=== PATIENT | male | born 1950 | race Caucasian/White ===

== ENCOUNTER 2018-01-29 19:34 | Inpatient (IN) | payer MEDICARE, OTHER ==
--- NOTE | 2018-01-29 21:34 | C.PDOC ---
History Of Present Illness 67 year old male with PMHx seizures, 3 stents in 2017 presents to the ED c/o right leg and foot pain associated with a sensation of warmth. Patient states he has multiple fall since December, his latest fall was [address] landed on his left side. Patient states he feels like his legs give out. Patient denies headache, visual changes, nausea, vomit, diarrhea, rash, numbness, visual changes. Chief Complaint (Nursing): Lower Extremity Problem/Injury History Per: Patient History/Exam Limitations: no limitations Onset/Duration Of Symptoms: Days Current Symptoms Are (Timing): Still Present Recent travel outside of the [place]: No Additional History Per: Patient - Ankle/Foot Description Of Injury: Fell Past Medical History Reviewed: Historical Data, Nursing Documentation, Vital Signs Vital Signs: Last Vital Signs Temp 99.7 F H 01/29/18 19:51 Pulse 86 01/29/18 19:51 Resp 20 01/29/18 19:51 BP 169/78 H 01/29/18 19:51 Pulse Ox 95 01/29/18 19:51 - Medical History PMH: Anxiety, Asthma, Diabetes, HTN Surgical History: Coronary Stent Family History: States: Unknown Family Hx - Social History Hx Tobacco Use: No Hx Alcohol Use: No Hx Substance Use: No - Immunization History Hx Tetanus Toxoid Vaccination: No Hx Influenza Vaccination: No Hx Pneumococcal Vaccination: No Review Of Systems Constitutional: Negative for: Fever, Chills Eyes: Negative for: Vision Change Cardiovascular: Positive for: Chest Pain. Negative for: Palpitations Respiratory: Negative for: Cough, Shortness of Breath Gastrointestinal: Negative for: Nausea, Vomiting, Abdominal Pain Musculoskeletal: Positive for: Shoulder Pain, Leg Pain, Foot Pain Skin: Negative for: Rash Neurological: Positive for: Weakness. Negative for: Numbness, Headache, Dizziness Physical Exam - Physical Exam Appears: Non-toxic, No Acute Distress, Unkempt, Other (uncomfortable) Skin: Normal Color, Warm, Dry Head: Atraumatic, Normacephalic Eye(s): bilateral: Normal Inspection, PERRL, EOMI Oral Mucosa: Moist Teeth: No Normal Dentition (poor), Other (teeth erroded to gum line) Neck: Normal ROM, Supple Chest: Symmetrical, Tenderness (left sided to palpation) Cardiovascular: Rhythm Regular Respiratory: Normal Breath Sounds, No Rales, No Rhonchi, No Wheezing Gastrointestinal/Abdominal: Soft, No Tenderness, No Guarding, No Rebound Extremity: Normal ROM (left shoulder due to pain), Tenderness (left shoulder to palpation and bilateral legs), Capillary Refill (< 2 seconds), No Deformity, Swelling (bilateral legs, right > left. Right leg extending from mid tib to dorsum of foot), Other (erythema, increased warmth more right > left, extendong from mid tib to dorsum of right foot. Scab noted on right sole. ) Pulses: Left Dorsalis Pedis: Normal, Right Dorsalis Pedis: Normal Neurological/Psych: Oriented x3, Normal Speech, Normal Cognition, Normal Motor, Normal Sensation Gait: Unable To Assess ED Course And Treatment - Laboratory Results Result Diagrams: 02/04/18 11:06 02/04/18 11:06 ECG: Interpreted By Me, Viewed By Ia ECG Rhythm: Atrial Fibrillation Interpretation Of ECG: AFiv rate control 99, normal QRS and QT intervals. Normal axis and no ST elevations Rate From EC (BPM) O2 Sat by Pulse Oximetry: 95 (ON RA) Pulse Ox Interpretation: Normal - Radiology CXR: Interpreted by Me, Viewed By Ia CXR Interpretation: Yes: No Acute Disease. No: Fracture - Other Rad Left shoulder X-Ray X-Ray: Read By Radiologist Interpretation: LEFT SHOULDER. Indication: Pain. Findings: There are changes of degenerative joint disease.No fracture or dislocation is seen. No aggressive bone lesion is noted. Impression: No radiographic evidence of an acute pathol ogy. . Electronically signed on Jan 30, 2018 12:19:35 AM EST by: Harper Quinn M.D., Certified by ABR, MSK, Neuroradiology - CT Scan/US CT head Other Rad Studies (CT/US): Read By Radiologist, Radiology Report Reviewed CT/US Interpretation: EXAM: CT Head without Intravenous Contrast. CLINICAL HISTORY: Frequent falls. TECHNIQUE: Axial computed tomography images of the head/brain without intravenous contrast. 0.00 mGy-cm. COMPARISON: None provided. FINDINGS: BRAIN. Chronic periventricular and subcortical microvascular disease is seen. VENTRICLES: There is generalized parenchymal atrophy noted as demonstrated by symmetrical dilatation of ventricles and sulci. ORBITS: The orbits are unremarkable. SINUSES AND MASTOIDS: Bilateral maxillary sinusitis. BONES: No fracture. SOFT TISSUES: Unremarkable. MISCELLANEOUS: No acute intracranial pathology. IMPRESSION: 1. There is generalized parenchymal atrophy noted as demonstrated by symmetrical dilatation of ventricles and sulci. 2. Chronic periventricular and subcortical microvascular disease is seen. 3. Bilateral maxillary sinusitis. 4. No acute intracranial pathology. . Electronically signed on Jan 29, 2018 11:32:35 PM EST by: Philippe Licea M.D., FLIP Certified By ABR & CBCCT. Fellowship Trained MRI and CT Specialist Medical Decision Making Medical Decision Making: Plan: * CT head * EKG * CXR * Left shoulder X-Ray * Blood culture * Labs 00:38 - Patient of Elise Ruiz. Dr. Nitin Bee covers for the doctor and accepts the patient for admission. Disposition Counseled Patient/Family Regarding: Studies Performed, Diagnosis - Disposition Disposition: HOSPITALIZED Disposition Time: 00:38 Condition: STABLE - Clinical Impression Clinical Impression: Frequent falls, Hyperglycemia - Scribe Statement The provider has reviewed the documentation as recorded by the Scribe Delmar Ruiz All medical record entries made by the Scribe were at my direction and personally dictated by me. I have reviewed the chart and agree that the record accurately reflects my personal performance of the history, physical exam, medical decision making, and the department course for this patient. I have also personally directed, reviewed, and agree with the discharge instructions and disposition.
[2018-01-29 22:07] LABS: BASO # 0.1 K/uL (0.0-0.2); BASO % 0.8 % (0.0-2.0); EOS % 0.5 % (0.0-4.0); HEMOGLOBIN 14.4 g/dL (12.0-18.0); LYMPH # 1.4 K/uL (1.0-4.3); LYMPH % 17.2 % (20.0-40.0); MEAN CELL VOLUME 90.8 fL (80.0-94.0); MEAN CORPUSCULAR HEMOGLOBIN 30.7 pg (27.0-31.0); MEAN CORPUSCULAR HGB CONC 33.8 g/dL (33.0-37.0); MEAN PLATELET VOLUME 11.5 fL (7.2-11.7); MONO # 0.9 K/uL (0.0-0.8); MONO % 10.8 % (0.0-10.0); NEUT # 5.6 K/uL (1.8-7.0); NEUT % 70.7 % (50.0-75.0); NRBC % 0.1 % (0.0-2.0); RBC 4.69 Mil/uL (4.40-5.90); RED CELL DISTRIBUTION WIDTH 13.2 % (11.5-14.5)
[2018-01-29 22:19] LABS: ALB/GLOB RATIO 1.2 (1.0-2.1); ALBUMIN 4.2 g/dL (3.5-5.0); ALT/SGPT 119 U/L (21-72); AST/SGOT 83 U/L (17-59); BLOOD UREA NITROGEN 17 mg/dL (9-20); CALCIUM 9.6 mg/dl (8.6-10.4); GFR NON-AFRICAN AMERICAN > 60
[2018-01-29 22:30] LABS: B-TYPE NATRIURETIC PEPTIDE 70.2 pg/mL (0-900)
[2018-01-29] MEDS ORDERED: Sodium Chloride 0.9% 1,000 ML IV ONE (23:44)
[2018-01-30 06:55] LABS: BARBITURATES, UR NEGATIVE (NEGATIVE); BENZODIAZEPINES, UR NEGATIVE (NEGATIVE); OPIATES, UR NEGATIVE (NEGATIVE); PHENCYCLIDINE, UR NEGATIVE (NEGATIVE)
--- NOTE | 2018-01-30 07:48 | CT ---
Date of service: 01/29/2018 PROCEDURE: CT HEAD WITHOUT CONTRAST. HISTORY: Frequent falls COMPARISON: 10/15/2012 TECHNIQUE: Axial computed tomography images were obtained through the head/brain without intravenous contrast. Radiation dose: Total exam DLP = 1171.41 mGy-cm. This CT exam was performed using one or more of the following dose reduction techniques: Automated exposure control, adjustment of the mA and/or kV according to patient size, and/or use of iterative reconstruction technique. FINDINGS: HEMORRHAGE: No intracranial hemorrhage. BRAIN: No mass effect or edema. Scattered focal lucencies in the subcortical and periventricular white matter suggestive for chronic microvascular ischemic change. Small lacunar infarcts at the level of the left caudate head. Prominent cisterna magna. Punctate lacunar infarct in the inferior right cerebellum. VENTRICLES: Unremarkable. No hydrocephalus. CALVARIUM: Unremarkable. Chronic deformity of the left nasal bone. PARANASAL SINUSES: Mucosal retention cysts and/or polyps at the inferior bilateral maxillary sinuses. Postsurgical changes in the paranasal sinuses. Small mucosal retention cyst and or polyp in the inferior left ethmoid air cells. Mucosal thickening of the ethmoid air cells. Hypoplastic frontal sinus. MASTOID AIR CELLS: Unremarkable as visualized. No inflammatory changes. OTHER FINDINGS: None. IMPRESSION: No acute intracranial abnormality. Diffuse generalized atrophy. Chronic microvascular ischemic changes. 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 Sinus mucosal disease as above. Chronic deformity of the left nasal bone. If symptoms persists, consider correlation with MRI. A preliminary report was generated at 11:32 p.m. on 01/29/[address] Philippe Licea from [facility].
[2018-01-30] MEDS: Clindamycin 600mg/50ml NS 600 MG/50 ML BAG IVPB SCH ×2 (08:00→16:56)
--- NOTE | 2018-01-30 08:46 | CP.PCM.HP ---
Past Patient History - Past Social History Smoking Status: Never Smoked - CARDIAC Hx Hypertension: Yes - PULMONARY Hx Asthma: Yes - HEENT Hx Deafness: (Hard of hearing, loss hearing aids) - MUSCULOSKELETAL/RHEUMATOLOGICAL Hx Falls: Yes - PSYCHIATRIC Hx Substance Use: No - SURGICAL HISTORY Hx Coronary Stent: Yes Meds Allergies/Adverse Reactions: Allergies Allergy/AdvReac Type Severity Reaction Status Date / Time aspirin Allergy Verified 01/29/18 19:56 Penicillins Allergy Verified 01/29/18 19:56 Physical Exam - Constitutional Appears: Well - Head Exam Head Exam: ATRAUMATIC, NORMAL INSPECTION, NORMOCEPHALIC - Eye Exam Eye Exam: EOMI, Normal appearance, PERRL Pupil Exam: NORMAL ACCOMODATION, PERRL - ENT Exam ENT Exam: Mucous Membranes Moist, Normal Exam - Neck Exam Neck exam: Positive for: Normal Inspection - Respiratory Exam Respiratory Exam: Decreased Breath Sounds - Cardiovascular Exam Cardiovascular Exam: REGULAR RHYTHM, +S1, +S2 - GI/Abdominal Exam GI & Abdominal Exam: Diminished Bowel Sounds, Soft - Rectal Exam Rectal Exam: Deferred Results - Vital Signs Recent Vital Signs: Last Vital Signs Temp 98.2 F 01/30/18 06:37 Pulse 82 01/30/18 07:19 Resp 19 01/30/18 07:19 BP 104/62 01/30/18 07:19 Pulse Ox 100 01/30/18 07:19 - Labs Result Diagrams: 01/29/18 22:01 01/29/18 22:01 Labs: Laboratory Results - last 24 hr 01/29/18 01/29/18 01/30/18 22:01 22:01 06:28 WBC 8.0 RBC 4.69 Hgb 14.4 Hct 42.5 MCV 90.8 MCH 30.7 MCHC 33.8 RDW 13.2 Plt Count 158 MPV 11.5 Neut % (Auto) 70.7 Lymph % (Auto) 17.2 L [place] % (Auto) 10.8 H Eos % (Auto) 0.5 Baso % (Auto) 0.8 Neut # (Auto) 5.6 Lymph # (Auto) 1.4 [place] # (Auto) 0.9 H Eos # (Auto) 0.0 Baso # (Auto) 0.1 Sodium 134 Potassium 4.7 Chloride 96 L Carbon Dioxide 29 Anion Gap 14 BUN 17 Creatinine 0.8 Est GFR ( Amer) > 60 Est GFR (Non-Af Amer) > 60 POC Glucose (mg/dL) Random Glucose 310 H Calcium 9.6 Phosphorus 3.6 Magnesium 2.0 Total Bilirubin 0.6 AST 83 H ALT 119 H D Alkaline Phosphatase 122 Troponin I < 0.0120 NT-Pro-B Natriuret Pep 70.2 Total Protein 7.7 Albumin 4.2 Globulin 3.5 Albumin/Globulin Ratio 1.2 Urine Opiates Screen Negative Urine Methadone Screen Negative Ur Barbiturates Screen Negative Ur Phencyclidine Scrn Negative Ur Amphetamines Screen Negative U Benzodiazepines Scrn Negative U Oth Cocaine Metabols Negative U Cannabinoids Screen Negative Alcohol, Quantitative < 10 01/30/18 07:12 WBC RBC Hgb Hct MCV MCH MCHC RDW Plt Count MPV Neut % (Auto) Lymph % (Auto) [place] % (Auto) Eos % (Auto) Baso % (Auto) Neut # (Auto) Lymph # (Auto) [place] # (Auto) Eos # (Auto) Baso # (Auto) Sodium Potassium Chloride Carbon Dioxide Anion Gap BUN Creatinine Est GFR ( Amer) Est GFR (Non-Af Amer) POC Glucose (mg/dL) 202 H Random Glucose Calcium Phosphorus Magnesium Total Bilirubin AST ALT Alkaline Phosphatase Troponin I NT-Pro-B Natriuret Pep Total Protein Albumin Globulin Albumin/Globulin Ratio Urine Opiates Screen Urine Methadone Screen Ur Barbiturates Screen Ur Phencyclidine Scrn Ur Amphetamines Screen U Benzodiazepines Scrn U Oth Cocaine Metabols U Cannabinoids Screen Alcohol, Quantitative Assessment & Plan - Assessment and Plan (Free Text) Plan: ID consult Urology consult Clindamycin Head CT reveals no acute intracranial hemorrhage no intracranial abnormality Diffuse generalized atrophy Shoulder x-ray and chest x-ray pending
--- NOTE | 2018-01-30 08:48 | RAD ---
Chest x-ray single frontal view HISTORY: Frequent falls. COMPARISON: 07/11/2013 FINDINGS: Mild venous congestion. Biapical pleural thickening. Enlarged ectatic aorta. Heart size within normal limits. Small nodular density at the right lung base. Scattered upper lobe granulomatous changes. Degenerative changes in the spine and shoulders. Impression: Mild venous congestion. Biapical pleural thickening. Enlarged ectatic aorta. Heart size within normal limits. Small nodular density at the right lung base. Scattered upper lobe granulomatous changes.
[2018-01-30 09:05] LABS: SQUAMOUS EPITHIAL < 1 /hpf (0-5); URINE BILIRUBIN NEGATIVE (NEGATIVE); URINE BLOOD NEGATIVE (NEGATIVE); URINE CLARITY Clear (Clear); URINE COLOR Yellow (YELLOW); URINE GLUCOSE (UA) 3+ mg/dL (Normal); URINE LEUKOCYTE ESTERASE NEG Leu/uL (Negative); URINE PROTEIN NEGATIVE (NEGATIVE)
[2018-01-30] MEDS: Enoxaparin 40 mg Syringe SC SCH (09:48)
[2018-01-30] MEDS: Pantoprazole 40 mg EC Tab PO SCH (09:48)
--- NOTE | 2018-01-30 10:25 | RAD ---
Date of service: 01/29/2018 PROCEDURE: Radiographs of the Left Shoulder HISTORY: recent fall COMPARISON: No prior. FINDINGS: BONES: Normal. No fracture. JOINTS: Minor degenerative osteoarthritis left acromioclavicular and glenohumeral joints. SOFT TISSUES: Normal. OTHER FINDINGS: None. IMPRESSION: No evidence of acute displaced fracture nor dislocation. Minor DJD as described.
--- NOTE | 2018-01-30 14:06 | CP.PCM.CON ---
History of Present Illness - History of Present Illness History of Present Illness: HPI: 67 year old male with PMHx seizures, 3 stents in 2017 presents to the ED c/o right leg and foot pain associated with a sensation of warmth. Patient states he has multiple fall since December, his latest fall was [address] landed on his left side. Patient states he feels like his legs give out. Patient denies headache, visual changes, nausea, vomit, diarrhea, rash, numbness, visual changes. PATIENT DENIES ANY COUGH, SHORTNESS OF BREATH OR CHEST PAIN. Infectious disease consultation requested by PMD FOR EVALUATION OF BILATERAL CELLULITIS. PATIENT VERY NONCOMPLIANT. STATES HE HAS NOT GONE TO THE DOCTOR OR TAKEN HIS MEDICATIONS. PATIENT WAS PLACED ON IV CLEOCIN 600 MG EVERY 8 HOURLY IN THE ER. PMH: Anxiety, Asthma, Diabetes, HTN Surgical History: Coronary Stent Family History: States: Unknown Family Hx - Social History Hx Tobacco Use: No Hx Alcohol Use: No Hx Substance Use: No - Immunization History Hx Tetanus Toxoid Vaccination: No Hx Influenza Vaccination: No Hx Pneumococcal Vaccination: No ALLERGY; PENICILLIN STATES HE SWELLS UP, ASPIRIN. Review of Systems - Constitutional Constitutional: Frequent Falls. absent: Chills, Fever - EENT Ears: absent: Dizziness Nose/Mouth/Throat: absent: Sore Throat - Cardiovascular Cardiovascular: Pedal Edema. absent: Chest Pain, Dyspnea, Syncope - Respiratory Respiratory: absent: Cough, Hemoptysis - Gastrointestinal Gastrointestinal: absent: Abdominal Pain, Nausea, Vomiting - Genitourinary Genitourinary: absent: Dysuria - Musculoskeletal Musculoskeletal: As Per HPI - Integumentary Integumentary: Skin Ulcer (.) - Neurological Neurological: Frequent Falls - Hematologic/Lymphatic Hematologic: As Per HPI. absent: Easy Bleeding, Easy Bruising Past Patient History - Past Social History Smoking Status: Never Smoked - CARDIAC Hx Hypertension: Yes - PULMONARY Hx Asthma: Yes - HEENT Hx Deafness: (Hard of hearing, loss hearing aids) - MUSCULOSKELETAL/RHEUMATOLOGICAL Hx Falls: Yes - PSYCHIATRIC Hx Substance Use: No - SURGICAL HISTORY Hx Coronary Stent: Yes Meds Allergies/Adverse Reactions: Allergies Allergy/AdvReac Type Severity Reaction Status Date / Time aspirin Allergy Verified 01/29/18 19:56 Penicillins Allergy Verified 01/29/18 19:56 - Medications Medications: Current Medications Enoxaparin Sodium (Lovenox) 40 mg SC DAILY [facility] Last Admin: 01/30/18 09:48 Dose: 40 mg Clindamycin Phosphate (Cleocin 600mg/50ml Ns) 600 mg in 50 mls @ 100 mls/hr IVPB Q8H [facility]; Protocol Last Admin: 01/30/18 08:00 Dose: 100 mls/hr Influenza Virus Vaccine (Fluzone Quad [id number]) 60 mcg IM .ONCE ONE Stop: 01/31/18 10:01 Pantoprazole Sodium (Protonix Ec Tab) 40 mg PO DAILY [facility] Last Admin: 01/30/18 09:48 Dose: 40 mg Pneumococcal Polyvalent Vaccine (Pneumovax 23 Vaccine) 0.5 ml IM .ONCE ONE Stop: 01/31/18 10:01 Physical Exam - Constitutional Appears: No Acute Distress - Head Exam Head Exam: NORMAL INSPECTION - Eye Exam Eye Exam: EOMI - ENT Exam ENT Exam: Normal Oropharynx - Neck Exam Neck exam: Positive for: Normal Inspection - Respiratory Exam Respiratory Exam: Clear to Auscultation Bilateral, NORMAL BREATHING PATTERN - Cardiovascular Exam Cardiovascular Exam: REGULAR RHYTHM, +S1 - GI/Abdominal Exam GI & Abdominal Exam: Normal Bowel Sounds, Soft. absent: Organomegaly, Tenderness - Extremities Exam Extremities exam: Positive for: pedal edema (1+), pedal pulses present (FEW HEALED SCABBING LESIONS NOTED BOTH LOWER EXTREMITIES.). Negative for: calf tenderness, joint swelling - Neurological Exam Neurological exam: Alert, CN II-XII Intact, Oriented x3, Reflexes Normal - Psychiatric Exam Psychiatric exam: Normal Mood - Skin Skin Exam: Normal Color, Warm Results - Vital Signs Recent Vital Signs: Last Vital Signs Temp 98.5 F 01/30/18 13:45 Pulse 94 H 01/30/18 13:45 Resp 20 01/30/18 13:45 BP 135/71 01/30/18 13:45 Pulse Ox 99 01/30/18 13:45 - Labs Result Diagrams: 01/29/18 22:01 01/29/18 22:01 Labs: Laboratory Results - last 24 hr 01/29/18 01/29/18 01/30/18 22:01 22:01 06:28 WBC 8.0 RBC 4.69 Hgb 14.4 Hct 42.5 MCV 90.8 MCH 30.7 MCHC 33.8 RDW 13.2 Plt Count 158 MPV 11.5 Neut % (Auto) 70.7 Lymph % (Auto) 17.2 L [place] % (Auto) 10.8 H Eos % (Auto) 0.5 Baso % (Auto) 0.8 Neut # (Auto) 5.6 Lymph # (Auto) 1.4 [place] # (Auto) 0.9 H Eos # (Auto) 0.0 Baso # (Auto) 0.1 Sodium 134 Potassium 4.7 Chloride 96 L Carbon Dioxide 29 Anion Gap 14 BUN 17 Creatinine 0.8 Est GFR ( Amer) > 60 Est GFR (Non-Af Amer) > 60 POC Glucose (mg/dL) Random Glucose 310 H Calcium 9.6 Phosphorus 3.6 Magnesium 2.0 Total Bilirubin 0.6 AST 83 H ALT 119 H D Alkaline Phosphatase 122 Troponin I < 0.0120 NT-Pro-B Natriuret Pep 70.2 Total Protein 7.7 Albumin 4.2 Globulin 3.5 Albumin/Globulin Ratio 1.2 Urine Color Urine Clarity Urine pH Ur Specific [place] Urine Protein Urine Glucose (UA) Urine Ketones Urine Blood Urine Nitrate Urine Bilirubin Urine Urobilinogen Ur Leukocyte Esterase Urine RBC (Auto) Ur Squamous Epith Cells Urine Opiates Screen Negative Urine Methadone Screen Negative Ur Barbiturates Screen Negative Ur Phencyclidine Scrn Negative Ur Amphetamines Screen Negative U Benzodiazepines Scrn Negative U Oth Cocaine Metabols Negative U Cannabinoids Screen Negative Alcohol, Quantitative < 10 01/30/18 01/30/18 06:28 07:12 WBC RBC Hgb Hct MCV MCH MCHC RDW Plt Count MPV Neut % (Auto) Lymph % (Auto) [place] % (Auto) Eos % (Auto) Baso % (Auto) Neut # (Auto) Lymph # (Auto) [place] # (Auto) Eos # (Auto) Baso # (Auto) Sodium Potassium Chloride Carbon Dioxide Anion Gap BUN Creatinine Est GFR ( Amer) Est GFR (Non-Af Amer) POC Glucose (mg/dL) 202 H Random Glucose Calcium Phosphorus Magnesium Total Bilirubin AST ALT Alkaline Phosphatase Troponin I NT-Pro-B Natriuret Pep Total Protein Albumin Globulin Albumin/Globulin Ratio Urine Color Yellow Urine Clarity Clear Urine pH 6.0 Ur Specific [place] 1.017 Urine Protein Negative Urine Glucose (UA) 3+ H Urine Ketones Negative Urine Blood Negative Urine Nitrate Negative Urine Bilirubin Negative Urine Urobilinogen 2.0 Ur Leukocyte Esterase Neg Urine RBC (Auto) 1 Ur Squamous Epith Cells < 1 Urine Opiates Screen Urine Methadone Screen Ur Barbiturates Screen Ur Phencyclidine Scrn Ur Amphetamines Screen U Benzodiazepines Scrn U Oth Cocaine Metabols U Cannabinoids Screen Alcohol, Quantitative - Imaging and Cardiology Chest x-ray Status: Report reviewed by me (mild venous congestion, biapical pleural thickening, small nodular density right lung base.) Assessment & Plan (1) Cellulitis of both lower extremities Status: Acute (2) Diabetes mellitus Status: Acute (3) Frequent falls Status: Acute (4) Nodule of right lung Status: Acute - Assessment and Plan (Free Text) Plan: PANCULTURES. ESR CRP. D DIMER. VIT D-25 OH LEVEL DC IV CLEOCIN. B/L VENOUS dOPPLER RULED OUT DVT. START iv VANCOMYCIN 1 G ONCE A DAY DAILY 01/30/18 ADD PO BACTRIM 1DS PO BID 01/30/18. HGB A1C. MONITOR LIVER FUNCTION TESTS CLOSELY. CONSIDER CT CHEST TO EVALUATE RIGHT LUNG BASE NODULE. CASE DISCUSSED WITH STAFF.
[2018-01-30] MEDS: Tmp-Smz 800 mg-160 mg DS Tab PO SCH (21:54)
[2018-01-31] MEDS: Tmp-Smz 800 mg-160 mg DS Tab PO SCH ×2 (06:04→21:11)
[2018-01-31 08:54] LABS: BASO % 0.7 % (0.0-2.0); EOS # 0.1 K/uL (0.0-0.7); EOS % 0.7 % (0.0-4.0); HEMOGLOBIN 14.3 g/dL (12.0-18.0); LYMPH # 1.8 K/uL (1.0-4.3); LYMPH % 24.7 % (20.0-40.0); MEAN CELL VOLUME 91.9 fL (80.0-94.0); MEAN CORPUSCULAR HEMOGLOBIN 31.2 pg (27.0-31.0); MEAN CORPUSCULAR HGB CONC 33.9 g/dL (33.0-37.0); MEAN PLATELET VOLUME 11.4 fL (7.2-11.7); MONO # 0.8 K/uL (0.0-0.8); MONO % 10.7 % (0.0-10.0); NEUT # 4.5 K/uL (1.8-7.0); NEUT % 63.2 % (50.0-75.0); RBC 4.58 Mil/uL (4.40-5.90); RED CELL DISTRIBUTION WIDTH 13.3 % (11.5-14.5); WHITE BLOOD COUNT 7.2 K/uL (4.8-10.8)
[2018-01-31 09:07] LABS: ALB/GLOB RATIO 1.1 (1.0-2.1); ALBUMIN 3.5 g/dL (3.5-5.0); ALT/SGPT 81 U/L (21-72); AST/SGOT 41 U/L (17-59); BILIRUBIN,DIRECT 0.5 mg/dL (0.0-0.4); BLOOD UREA NITROGEN 13 mg/dL (9-20); CALCIUM 8.8 mg/dl (8.6-10.4); GFR NON-AFRICAN AMERICAN > 60
[2018-01-31] MEDS: Saccharomyces Boulardi 250 mg Cap PO SCH (09:55)
[2018-01-31] MEDS: Enoxaparin 40 mg Syringe SC SCH (09:55)
[2018-01-31] MEDS: Pantoprazole 40 mg EC Tab PO SCH (09:56)
[2018-01-31] MEDS ORDERED: Influenza Vaccine 60 MCG/0.5 ML SYR (3 yr & up) IM ONE (10:00)
[2018-01-31] MEDS ORDERED: Pneumococcal 23-Valent Vaccine IM ONE (10:00)
[2018-01-31 16:22] VITALS: RESP 20
[2018-01-31] MEDS: (Novolog) Insulin Aspart, Recombinant 100 u/ml 10 ml vial SC SCH ×2 (17:35→21:37)
[2018-01-31 18:29] LABS: PROLACTIN 9.6 ng/mL (3.7-17.9)
--- NOTE | 2018-01-31 19:26 | CP.PCM.PN ---
Subjective - Date & Time of Evaluation Date of Evaluation: 01/31/18 Time of Evaluation: 19:26 - Subjective Subjective: AFEBRILE, WEAK. C/O RECURRENT FALLS B/L CELLULITIS WITH CHRONIC HEALING ULCERS . ROS ; UNREMARKABLE Objective - Vital Signs/Intake and Output Vital Signs (last 24 hours): Temp Pulse Resp BP Pulse Ox 98.2 F 79 20 148/67 96 01/31/18 15:21 01/31/18 15:21 01/31/18 15:21 01/31/18 15:21 01/31/18 15:21 Intake and Output: 01/31/18 02/01/18 18:59 06:59 Intake Total 300 Output Total 500 Balance -200 - Medications Medications: Current Medications Enoxaparin Sodium (Lovenox) 40 mg SC DAILY [facility] Last Admin: 01/31/18 09:55 Dose: 40 mg Vancomycin HCl 1 gm/ Sodium (Chloride) 250 mls @ 166.7 mls/hr IVPB Q24H [facility]; Protocol Last Admin: 01/31/18 14:05 Dose: 166.7 mls/hr Insulin Aspart (Novolog) 0 unit SC ACHS [facility]; Protocol Last Admin: 01/31/18 17:35 Dose: 3 u Pantoprazole Sodium (Protonix Ec Tab) 40 mg PO DAILY [facility] Last Admin: 01/31/18 09:56 Dose: 40 mg Saccharomyces Boulardii (Florastor) 250 mg PO DAILY [facility] Last Admin: 01/31/18 09:55 Dose: 250 mg Trimethoprim/Sulfamethoxazole (Bactrim Ds Tab) 1 tab PO Q12H [facility]; Protocol Last Admin: 01/31/18 06:04 Dose: 1 tab - Labs Labs: 01/31/18 08:47 01/31/18 08:47 - Constitutional Appears: No Acute Distress, Chronically Ill - Head Exam Head Exam: NORMAL INSPECTION - Eye Exam Eye Exam: EOMI - ENT Exam ENT Exam: Normal Exam, Normal Oropharynx - Neck Exam Neck Exam: Normal Inspection - Cardiovascular Exam Cardiovascular Exam: REGULAR RHYTHM, +S1, +S2 - GI/Abdominal Exam GI & Abdominal Exam: Soft, Normal Bowel Sounds - Extremities Exam Extremities Exam: Pedal Edema, Tenderness (ON PALPATION. CH HEALED ULCERS B/L LE AND ON KNEES NOTED S/P FALLS.). absent: Calf Tenderness - Neurological Exam Neurological Exam: Awake, CN II-XII Intact, Oriented x3, Reflexes Normal - Psychiatric Exam Psychiatric exam: Normal Mood - Skin Skin Exam: Abrasion, Dry, Normal Color, Warm Assessment and Plan (1) Cellulitis of both lower extremities Status: Acute (2) Diabetes mellitus Status: Acute (3) Frequent falls Status: Acute (4) Nodule of right lung Status: Acute - Assessment and Plan (Free Text) Plan: B/L VENOUS dOPPLER RULED OUT DVT--PENDING. ON iv VANCOMYCIN 1 G ONCE A DAY DAILY 01/30/18 ON PO BACTRIM 1DS PO BID 01/30/18. HGB A1C. MONITOR LIVER FUNCTION TESTS CLOSELY. CONSIDER CT CHEST TO EVALUATE RIGHT LUNG BASE NODULE. CASE DISCUSSED WITH STAFF.
--- NOTE | 2018-01-31 20:11 | CP.PCM.PN ---
Subjective - Date & Time of Evaluation Date of Evaluation: 01/31/18 Time of Evaluation: 10:45 - Subjective Subjective: clinically same Objective - Vital Signs/Intake and Output Vital Signs (last 24 hours): Temp Pulse Resp BP Pulse Ox 98.2 F 79 20 148/67 96 01/31/18 15:21 01/31/18 15:21 01/31/18 15:21 01/31/18 15:21 01/31/18 15:21 Intake and Output: 01/31/18 02/01/18 18:59 06:59 Intake Total 300 Output Total 500 Balance -200 - Medications Medications: Current Medications Enoxaparin Sodium (Lovenox) 40 mg SC DAILY [facility] Last Admin: 01/31/18 09:55 Dose: 40 mg Vancomycin HCl 1 gm/ Sodium (Chloride) 250 mls @ 166.7 mls/hr IVPB Q24H [facility]; Protocol Last Admin: 01/31/18 14:05 Dose: 166.7 mls/hr Insulin Aspart (Novolog) 0 unit SC ACHS [facility]; Protocol Last Admin: 01/31/18 17:35 Dose: 3 u Pantoprazole Sodium (Protonix Ec Tab) 40 mg PO DAILY [facility] Last Admin: 01/31/18 09:56 Dose: 40 mg Saccharomyces Boulardii (Florastor) 250 mg PO DAILY [facility] Last Admin: 01/31/18 09:55 Dose: 250 mg Trimethoprim/Sulfamethoxazole (Bactrim Ds Tab) 1 tab PO Q12H [facility]; Protocol Last Admin: 01/31/18 06:04 Dose: 1 tab - Labs Labs: 01/31/18 08:47 01/31/18 08:47 - Constitutional Appears: Well - Head Exam Head Exam: ATRAUMATIC, NORMAL INSPECTION, NORMOCEPHALIC - Eye Exam Eye Exam: EOMI, Normal appearance, PERRL Pupil Exam: NORMAL ACCOMODATION, PERRL - ENT Exam ENT Exam: Mucous Membranes Moist, Normal Exam - Neck Exam Neck Exam: Full ROM, Normal Inspection. absent: Lymphadenopathy - Respiratory Exam Respiratory Exam: Decreased Breath Sounds - Cardiovascular Exam Cardiovascular Exam: REGULAR RHYTHM, +S1, +S2 - GI/Abdominal Exam GI & Abdominal Exam: Soft, Diminished Bowel Sounds - Rectal Exam Rectal Exam: Deferred
[2018-02-01] MEDS ORDERED: Ergocalciferol 50,000 Intl Units Cap PO SCH (06:00)
[2018-02-01] MEDS: Tmp-Smz 800 mg-160 mg DS Tab PO SCH ×2 (06:12→18:14)
[2018-02-01] MEDS: (Novolog) Insulin Aspart, Recombinant 100 u/ml 10 ml vial SC SCH ×4 (08:23→21:24)
[2018-02-01 08:25] LABS: BASO # 0.1 K/uL (0.0-0.2); BASO % 0.6 % (0.0-2.0); EOS % 0.5 % (0.0-4.0); HEMOGLOBIN 15.1 g/dL (12.0-18.0); LYMPH # 1.5 K/uL (1.0-4.3); LYMPH % 17.9 % (20.0-40.0); MEAN CELL VOLUME 90.3 fL (80.0-94.0); MEAN CORPUSCULAR HEMOGLOBIN 31.1 pg (27.0-31.0); MEAN CORPUSCULAR HGB CONC 34.4 g/dL (33.0-37.0); MEAN PLATELET VOLUME 11.4 fL (7.2-11.7); MONO # 0.9 K/uL (0.0-0.8); MONO % 10.2 % (0.0-10.0); NEUT % 70.8 % (50.0-75.0); NRBC % 0.1 % (0.0-2.0); RBC 4.85 Mil/uL (4.40-5.90); WHITE BLOOD COUNT 8.4 K/uL (4.8-10.8)
[2018-02-01 08:49] LABS: ALBUMIN 3.5 g/dL (3.5-5.0); ALT/SGPT 66 U/L (21-72); AST/SGOT 51 U/L (17-59); BLOOD UREA NITROGEN 12 mg/dL (9-20); CALCIUM 8.9 mg/dl (8.6-10.4); GFR NON-AFRICAN AMERICAN > 60
[2018-02-01] MEDS: Saccharomyces Boulardi 250 mg Cap PO SCH (09:38)
[2018-02-01] MEDS: Pantoprazole 40 mg EC Tab PO SCH (09:38)
[2018-02-01] MEDS: Enoxaparin 40 mg Syringe SC SCH (09:38)
--- NOTE | 2018-02-01 13:12 | CP.PCM.PN ---
Subjective - Date & Time of Evaluation Date of Evaluation: 02/01/18 Time of Evaluation: 11:45 - Subjective Subjective: clinically same Objective - Vital Signs/Intake and Output Vital Signs (last 24 hours): Temp Pulse Resp BP Pulse Ox 97.6 F 82 20 147/71 95 02/01/18 09:11 02/01/18 09:11 02/01/18 09:11 02/01/18 09:11 02/01/18 09:11 Intake and Output: 02/01/18 02/01/18 06:59 18:59 Intake Total 240 Balance 240 - Medications Medications: Current Medications Enoxaparin Sodium (Lovenox) 40 mg SC DAILY [facility] Last Admin: 02/01/18 09:38 Dose: 40 mg Ergocalciferol (Drisdol 50,000 Intl Units Cap) 1 cap PO Q7D [facility] Stop: 04/19/18 06:01 Last Admin: 02/01/18 06:11 Dose: 1 cap Vancomycin HCl 1 gm/ Sodium (Chloride) 250 mls @ 166.7 mls/hr IVPB Q24H [facility]; Protocol Last Admin: 01/31/18 14:05 Dose: 166.7 mls/hr Insulin Aspart (Novolog) 0 unit SC ACHS [facility]; Protocol Last Admin: 02/01/18 11:46 Dose: 1 u Pantoprazole Sodium (Protonix Ec Tab) 40 mg PO DAILY [facility] Last Admin: 02/01/18 09:38 Dose: 40 mg Saccharomyces Boulardii (Florastor) 250 mg PO DAILY [facility] Last Admin: 02/01/18 09:38 Dose: 250 mg Trimethoprim/Sulfamethoxazole (Bactrim Ds Tab) 1 tab PO Q12H [facility]; Protocol Last Admin: 02/01/18 06:12 Dose: 1 tab - Labs Labs: 02/01/18 08:10 02/01/18 08:10 - Constitutional Appears: Well - Head Exam Head Exam: ATRAUMATIC, NORMAL INSPECTION, NORMOCEPHALIC - Eye Exam Eye Exam: EOMI, Normal appearance, PERRL Pupil Exam: NORMAL ACCOMODATION, PERRL - ENT Exam ENT Exam: Mucous Membranes Moist, Normal Exam - Neck Exam Neck Exam: Full ROM, Normal Inspection. absent: Lymphadenopathy - Respiratory Exam Respiratory Exam: Decreased Breath Sounds - Cardiovascular Exam Cardiovascular Exam: REGULAR RHYTHM, +S1, +S2 - GI/Abdominal Exam GI & Abdominal Exam: Soft, Diminished Bowel Sounds - Rectal Exam Rectal Exam: Deferred
[2018-02-02] MEDS: Tmp-Smz 800 mg-160 mg DS Tab PO SCH ×2 (06:39→18:11)
--- NOTE | 2018-02-02 06:54 | CP.PCM.CON ---
History of Present Illness - History of Present Illness History of Present Illness: CONSULTATION DICTATED FREQUENT FALLS LEFT HEMIPARESIS Hx SEIUZRES MRI/EEG FALL PRECAUTION Past Patient History - Past Medical History & Family History Past Medical History?: Yes - Past Social History Smoking Status: Never Smoked - CARDIAC Hx Hypertension: Yes - PULMONARY Hx Asthma: Yes - HEENT Hx Deafness: (Hard of hearing, loss hearing aids) - ENDOCRINE/METABOLIC Hx Diabetes Mellitus Type 2: Yes - MUSCULOSKELETAL/RHEUMATOLOGICAL Hx Falls: Yes - PSYCHIATRIC Hx Substance Use: No - SURGICAL HISTORY Hx Coronary Stent: Yes Meds Allergies/Adverse Reactions: Allergies Allergy/AdvReac Type Severity Reaction Status Date / Time aspirin Allergy Mild VOMITING Verified 01/31/18 00:48 Penicillins Allergy Mild SWELLING Verified 01/31/18 00:48 - Medications Medications: Current Medications Enoxaparin Sodium (Lovenox) 40 mg SC DAILY [facility] Last Admin: 02/01/18 09:38 Dose: 40 mg Ergocalciferol (Drisdol 50,000 Intl Units Cap) 1 cap PO Q7D [facility] Stop: 04/19/18 06:01 Last Admin: 02/01/18 06:11 Dose: 1 cap Vancomycin HCl 1 gm/ Sodium (Chloride) 250 mls @ 166.7 mls/hr IVPB Q24H [facility]; Protocol Last Admin: 02/01/18 14:16 Dose: 166.7 mls/hr Insulin Aspart (Novolog) 0 unit SC ACHS [facility]; Protocol Last Admin: 02/01/18 21:24 Dose: Not Given Pantoprazole Sodium (Protonix Ec Tab) 40 mg PO DAILY [facility] Last Admin: 02/01/18 09:38 Dose: 40 mg Saccharomyces Boulardii (Florastor) 250 mg PO DAILY [facility] Last Admin: 02/01/18 09:38 Dose: 250 mg Trimethoprim/Sulfamethoxazole (Bactrim Ds Tab) 1 tab PO Q12H [facility]; Protocol Last Admin: 02/02/18 06:39 Dose: 1 tab Results - Vital Signs Recent Vital Signs: Last Vital Signs Temp 99.9 F H 02/01/18 16:00 Pulse 105 H 02/02/18 04:08 Resp 20 02/01/18 16:00 BP 120/67 02/01/18 16:00 Pulse Ox 95 02/01/18 16:00 - Labs Result Diagrams: 02/01/18 08:10 02/01/18 08:10 Labs: Laboratory Results - last 24 hr 01/31/18 02/01/18 02/01/18 08:47 08:10 08:10 WBC 8.4 RBC 4.85 Hgb 15.1 Hct 43.9 MCV 90.3 MCH 31.1 H MCHC 34.4 RDW 13.0 Plt Count 183 MPV 11.4 Neut % (Auto) 70.8 Lymph % (Auto) 17.9 L [place] % (Auto) 10.2 H Eos % (Auto) 0.5 Baso % (Auto) 0.6 Neut # (Auto) 6.0 Lymph # (Auto) 1.5 [place] # (Auto) 0.9 H Eos # (Auto) 0.0 Baso # (Auto) 0.1 Sodium 134 Potassium 4.2 Chloride 101 Carbon Dioxide 23 Anion Gap 14 BUN 12 Creatinine 0.9 Est GFR ( Amer) > 60 Est GFR (Non-Af Amer) > 60 POC Glucose (mg/dL) Random Glucose 201 H Hemoglobin A1c 12.2 H D Calcium 8.9 Total Bilirubin 0.6 AST 51 ALT 66 Alkaline Phosphatase 87 Total Protein 7.1 Albumin 3.5 Globulin 3.6 Albumin/Globulin Ratio 1.0 02/01/18 02/01/18 02/01/18 11:19 16:05 20:53 WBC RBC Hgb Hct MCV MCH MCHC RDW Plt Count MPV Neut % (Auto) Lymph % (Auto) [place] % (Auto) Eos % (Auto) Baso % (Auto) Neut # (Auto) Lymph # (Auto) [place] # (Auto) Eos # (Auto) Baso # (Auto) Sodium Potassium Chloride Carbon Dioxide Anion Gap BUN Creatinine Est GFR ( Amer) Est GFR (Non-Af Amer) POC Glucose (mg/dL) 156 H 199 H 238 H Random Glucose Hemoglobin A1c Calcium Total Bilirubin AST ALT Alkaline Phosphatase Total Protein Albumin Globulin Albumin/Globulin Ratio 02/02/18 06:45 WBC RBC Hgb Hct MCV MCH MCHC RDW Plt Count MPV Neut % (Auto) Lymph % (Auto) [place] % (Auto) Eos % (Auto) Baso % (Auto) Neut # (Auto) Lymph # (Auto) [place] # (Auto) Eos # (Auto) Baso # (Auto) Sodium Potassium Chloride Carbon Dioxide Anion Gap BUN Creatinine Est GFR ( Amer) Est GFR (Non-Af Amer) POC Glucose (mg/dL) 193 H Random Glucose Hemoglobin A1c Calcium Total Bilirubin AST ALT Alkaline Phosphatase Total Protein Albumin Globulin Albumin/Globulin Ratio
[2018-02-02] MEDS: (Novolog) Insulin Aspart, Recombinant 100 u/ml 10 ml vial SC SCH ×4 (08:05→22:18)
[2018-02-02] MEDS: Pantoprazole 40 mg EC Tab PO SCH ×2 (10:51→11:11)
[2018-02-02] MEDS: Saccharomyces Boulardi 250 mg Cap PO SCH ×2 (10:51→11:10)
[2018-02-02] MEDS: Enoxaparin 40 mg Syringe SC SCH ×2 (10:51→11:11)
[2018-02-02] MEDS ORDERED: Gadodiamide 287 mg/ml 20 ml IV ONE (13:26)
--- NOTE | 2018-02-02 14:00 | CP.PCM.PN ---
Subjective - Date & Time of Evaluation Date of Evaluation: 02/02/18 Time of Evaluation: 14:00 - Subjective Subjective: AFEBRILE, C/O WEAKNESS BOTH LEGS /PAIN LEGS B/L. C/O RECURRENT FALLS B/L CELLULITIS WITH CHRONIC HEALING ULCERS . ROS ; UNREMARKABLE SEEN BY NEUROLOGY TODAY Objective - Vital Signs/Intake and Output Vital Signs (last 24 hours): Temp Pulse Resp BP Pulse Ox 98.4 F 76 20 112/78 97 02/02/18 08:27 02/02/18 08:27 02/02/18 08:27 02/02/18 08:27 02/02/18 08:27 Intake and Output: 02/02/18 02/02/18 06:59 18:59 Intake Total 240 Balance 240 - Medications Medications: Current Medications Clopidogrel Bisulfate (Plavix) 75 mg PO DAILY [facility] Last Admin: 02/02/18 11:11 Dose: 75 mg Enoxaparin Sodium (Lovenox) 40 mg SC DAILY [facility] Last Admin: 02/02/18 11:11 Dose: 40 mg Ergocalciferol (Drisdol 50,000 Intl Units Cap) 1 cap PO Q7D [facility] Stop: 04/19/18 06:01 Last Admin: 02/01/18 06:11 Dose: 1 cap Vancomycin HCl 1 gm/ Sodium (Chloride) 250 mls @ 166.7 mls/hr IVPB Q24H [facility]; Protocol Last Admin: 02/01/18 14:16 Dose: 166.7 mls/hr Insulin Aspart (Novolog) 0 unit SC ACHS [facility]; Protocol Last Admin: 02/02/18 08:05 Dose: 1 u Pantoprazole Sodium (Protonix Ec Tab) 40 mg PO DAILY [facility] Last Admin: 02/02/18 11:11 Dose: 40 mg Saccharomyces Boulardii (Florastor) 250 mg PO DAILY [facility] Last Admin: 02/02/18 11:10 Dose: 250 mg Trimethoprim/Sulfamethoxazole (Bactrim Ds Tab) 1 tab PO Q12H [facility]; Protocol Last Admin: 02/02/18 06:39 Dose: 1 tab - Labs Labs: 02/01/18 08:10 02/01/18 08:10 - Constitutional Appears: No Acute Distress, Unkempt, Older Than Stated Age, Chronically Ill - Head Exam Head Exam: NORMAL INSPECTION - Eye Exam Eye Exam: EOMI, PERRL - ENT Exam ENT Exam: Mucous Membranes Dry (POOR ORAL HYGIENE), Normal Oropharynx - Respiratory Exam Respiratory Exam: Decreased Breath Sounds - Cardiovascular Exam Cardiovascular Exam: REGULAR RHYTHM, +S1, +S2 - GI/Abdominal Exam GI & Abdominal Exam: Soft, Normal Bowel Sounds. 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 CONTINUE ON iv VANCOMYCIN 1 G ONCE A DAY DAILY 01/30/18 CONTINUE ON PO BACTRIM 1DS PO BID 01/30/18. MONITOR LIVER FUNCTION TESTS CLOSELY. WILL F/U MRI BRAIN.
--- NOTE | 2018-02-02 14:29 | CP.PCM.PN ---
Subjective - Date & Time of Evaluation Date of Evaluation: 02/02/18 Time of Evaluation: 11:30 - Subjective Subjective: clinically same Objective - Vital Signs/Intake and Output Vital Signs (last 24 hours): Temp Pulse Resp BP Pulse Ox 98.4 F 76 20 112/78 97 02/02/18 08:27 02/02/18 08:27 02/02/18 08:27 02/02/18 08:27 02/02/18 08:27 Intake and Output: 02/02/18 02/02/18 06:59 18:59 Intake Total 240 Balance 240 - Medications Medications: Current Medications Clopidogrel Bisulfate (Plavix) 75 mg PO DAILY [facility] Last Admin: 02/02/18 11:11 Dose: 75 mg Enoxaparin Sodium (Lovenox) 40 mg SC DAILY [facility] Last Admin: 02/02/18 11:11 Dose: 40 mg Ergocalciferol (Drisdol 50,000 Intl Units Cap) 1 cap PO Q7D [facility] Stop: 04/19/18 06:01 Last Admin: 02/01/18 06:11 Dose: 1 cap Vancomycin HCl 1 gm/ Sodium (Chloride) 250 mls @ 166.7 mls/hr IVPB Q24H [facility]; Protocol Last Admin: 02/01/18 14:16 Dose: 166.7 mls/hr Insulin Aspart (Novolog) 0 unit SC ACHS [facility]; Protocol Last Admin: 02/02/18 08:05 Dose: 1 u Pantoprazole Sodium (Protonix Ec Tab) 40 mg PO DAILY [facility] Last Admin: 02/02/18 11:11 Dose: 40 mg Saccharomyces Boulardii (Florastor) 250 mg PO DAILY [facility] Last Admin: 02/02/18 11:10 Dose: 250 mg Trimethoprim/Sulfamethoxazole (Bactrim Ds Tab) 1 tab PO Q12H [facility]; Protocol Last Admin: 02/02/18 06:39 Dose: 1 tab - Labs Labs: 02/01/18 08:10 02/01/18 08:10 - Constitutional Appears: Well - Head Exam Head Exam: ATRAUMATIC, NORMAL INSPECTION, NORMOCEPHALIC - Eye Exam Eye Exam: EOMI, Normal appearance, PERRL Pupil Exam: NORMAL ACCOMODATION, PERRL - ENT Exam ENT Exam: Mucous Membranes Moist, Normal Exam - Neck Exam Neck Exam: Full ROM, Normal Inspection. absent: Lymphadenopathy - Respiratory Exam Respiratory Exam: Decreased Breath Sounds - Cardiovascular Exam Cardiovascular Exam: REGULAR RHYTHM, +S1, +S2 - GI/Abdominal Exam GI & Abdominal Exam: Soft, Diminished Bowel Sounds - Rectal Exam Rectal Exam: Deferred
--- NOTE | 2018-02-02 15:56 | CON ---
DATE: 02/02/2018 ATTENDING PHYSICIAN: Nicki Bee MD LOCATION: The patient's room number 671, bed A. REASON FOR CONSULTATION: Frequent falls. CHIEF COMPLAINT The patient was brought into [facility] with a history of multiple falls. From neurologic point of view, I was called into evaluate him for further management. HISTORY OF PRESENT ILLNESS: Jose R Evans is a 67-year-old right-handed Mohawk-speaking male presenting with multiple episode of falls. He claims that he has been having episodes of freezing spell for which lasted for about 15 minutes and he gets better on his own. No warning sign preceding to this. He was seen by his primary care physician. He was told that he had a seizures. However, though he was diagnosed he has never been placed on any medication for his seizures. Never been worked up. Following fall, he get hurt mostly on his left side than his right side. No history of headache. No history of visual or bulbar dysfunction. These episodes not associating with bowel, bladder incontinence or any involuntary movements being documented or witnessed. PAST MEDICAL HISTORY: Coronary stent been placed. Asthma, diabetes, hypertension. ALLERGIES: ASPIRIN AND PENICILLIN. REVIEW OF SYSTEMS: A 12-point system being reviewed. From neuro, frequent fall. MEDICATIONS Bactrim, Drisdol, Florastor, Lovenox, NovoLog insulin, Protonix, vancomycin. PHYSICAL EXAMINATION: VITAL SIGNS: Blood pressure 120/67, mean artery pressure of 84, respiratory rate 18, temperature 99.9 with a pulse rate of 72 and regular. NECK: Supple. No carotid bruits. HEART: Sounds regular. CHEST: Fair air entry. EXTREMITIES: No edema in legs. Multiple bruises noted, particularly over the left knee over the anterior aspect. NEUROLOGIC: The patient is awake, alert and or to person, place and time. Speech is clear. Naming, repetition, fluency, comprehension all within normal. No retrograde as well as antegrade amnesia. No sign of confusion. No sign of hallucination. Cranial nerve examination: Visual field intact. Pupils react to light. Extraocular movement normal. No nystagmus. No facial sensory deficit. Facial asymmetry manifesting with flattening of the left nasolabial fold. Hearing is normal. Tongue is midline. Good gag. Motor examination: Outstretched hand with eyes closed left drift with a tone increased on his left side. Deep tendon reflexes, biceps, brachialis, triceps absent. Both knees are 2+. Both ankles are absent. Plantars are upgoing on both sides. Sensory examination: Grossly intact. No cortical sensory loss. Coordination: Finger-nose test is intact on his right side. Gait is deferred at this time. CONCLUSION: Jose R Evans, as per neurological examination, presenting with left hemiparesis with a history of frequent fall and history of known seizures. The current examination shows left hemiparesis which is probably the subcortical dysfunction could be tumor versus ischemic process. WORKUP: WBC 8.4, hemoglobin 16.1, hematocrit 43.9, platelet 183. Sodium 134, potassium 4.2, chloride 101, bicarbonate 23, GFR more than 60, glucose 193. CT of the head reviewed by me which does not show any acute pathology. 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 RECOMMENDATIONS: 1. MRI of the brain to rule out any structural cause for his underlying frequent fall and so-called seizures. 2. EEG. 3. Carotid Doppler. 4. The patient should be placed on Plavix because of the stroke process. The patient should have a lipid profile and blood workup as per the order. The patient will be followed while he is in the hospital. ADDENDUM: The patient should be placed on fall precaution and physical therapy should be started as a as possible. Julio Cesar Meyer MD
[2018-02-02 17:12] LABS: HDL CHOLESTEROL 40 mg/dL (30-70)
[2018-02-02 17:23] LABS: LDL CHOLESTEROL 149 mg/dL (0-129)
--- NOTE | 2018-02-02 17:31 | MRI ---
Date of service: 02/02/2018 PROCEDURE: MRI BRAIN WITH AND WITHOUT CONTRAST HISTORY: mesial temporal atrophy COMPARISON: None available. TECHNIQUE: Multiplanar, multisequence MR images of the brain were obtained with and without intravenous contrast enhancement. FINDINGS: HEMORRHAGE: No acute parenchymal, subarachnoid or extra-axial hemorrhage. No evidence of hemosiderin deposition seen on gradient echo weighted sequence. DWI: No evidence of an acute or early subacute infarction. BRAIN PARENCHYMA: Mild chronic periventricular white matter ischemic changes seen extending peripherally into the deep and to a lesser degree subcortical white matter both cerebral hemispheres.. Multiple more discrete chronic lacunar type infarcts scattered about the deep and subcortical white matter, both basal nuclei and brainstem... Mild generalized volume loss ENHANCEMENT: No enhancing parenchymal nor extra-axial masses or collections. No evidence of unusual meningeal enhancement. VENTRICLES: No obstructive hydrocephalus. CRANIUM: Unremarkable. ORBITS: Apparent changes of bilateral cataract surgery.. PARANASAL SINUSES/MASTOIDS: Postoperative changes of the maxillary and ethmoid sinuses again noted. Apparent resection of the middle turbinates.. The ethmoid air complexes as well as frontal sinuses are also hypoplastic in appearance. Minor mucosal thickening both maxillary antra slightly improved. VASCULAR SYSTEM: Visualized major vascular flow voids at skull base patent.. OTHER FINDINGS: None . IMPRESSION: No evidence of acute intracranial hemorrhage or infarction. Chronic white matter, basal nuclei and brainstem ischemic changes. See above discussion for additional details findings.
[2018-02-03] MEDS: Tmp-Smz 800 mg-160 mg DS Tab PO SCH ×2 (06:17→17:50)
[2018-02-03 07:22] LABS: BASO # 0.1 K/uL (0.0-0.2); EOS % 0.2 % (0.0-4.0); HEMOGLOBIN 15.8 g/dL (12.0-18.0); LYMPH # 1.4 K/uL (1.0-4.3); LYMPH % 13.2 % (20.0-40.0); MEAN CELL VOLUME 91.6 fL (80.0-94.0); MEAN CORPUSCULAR HEMOGLOBIN 31.5 pg (27.0-31.0); MEAN CORPUSCULAR HGB CONC 34.4 g/dL (33.0-37.0); MONO # 1.2 K/uL (0.0-0.8); MONO % 11.3 % (0.0-10.0); NEUT # 7.8 K/uL (1.8-7.0); NEUT % 74.3 % (50.0-75.0); NRBC % 0.2 % (0.0-2.0); RBC 5.01 Mil/uL (4.40-5.90); RED CELL DISTRIBUTION WIDTH 13.2 % (11.5-14.5); WHITE BLOOD COUNT 10.5 K/uL (4.8-10.8)
[2018-02-03 07:38] LABS: BLOOD UREA NITROGEN 17 mg/dL (9-20); CALCIUM 9.2 mg/dl (8.6-10.4); GFR NON-AFRICAN AMERICAN > 60
[2018-02-03] MEDS: (Novolog) Insulin Aspart, Recombinant 100 u/ml 10 ml vial SC SCH ×4 (08:25→21:52)
--- NOTE | 2018-02-03 08:53 | PN ---
DATE: 02/03/2018 TIME OF EVALUATION: 06:48 a.m. NEUROLOGICAL PROBLEM: Inability to walk, probable neuropathy, superimposed with lumbosacral pathology. PHYSICAL EXAMINATION: VITAL SIGNS: Blood pressure 124/72, mean arterial pressure of 89, respiratory rate 18, pulse rate 95, temperature 98.2. The patient claims he was not able to walk. This is happening for the last one month. Not even able to walk two to three steps. Afraid of falling. He also admitted to frequented fall in the past. He complained right side is weaker than the left side not associating with bowel and bladder incontinence. He complains of inability to feel his leg knee down associating with pain at his knee. Examination, significant posterior column dysfunction. He was not able to appreciate his toes moving up or down. Deep tendon reflexes, knee trace, both ankles are absent. Plantars are equivocal response. Workup, MRI of the brain does not show any acute pathology of ischemic process. Electroencephalogram, no paroxysmal activities suggestive of seizures. However, brain waves are slow for his age consistent with bilateral cerebral dysfunction. This is probably secondary to metabolic vascular degenerative process. However, this could be a postictal phenomenon 2. Consider him to have ambulatory video electroencephalogram that can be done as outpatient. In the meantime I would like him to have MRI of the lumbosacral spine and physical therapy should be instituted to stabilize his gait. Julio Cesar Meyer MD
[2018-02-03 08:56] LABS: FREE T4 0.76 ng/dL (0.78-2.19)
[2018-02-03] MEDS: Pantoprazole 40 mg EC Tab PO SCH (10:23)
[2018-02-03] MEDS: Saccharomyces Boulardi 250 mg Cap PO SCH (10:24)
[2018-02-03] MEDS: Enoxaparin 40 mg Syringe SC SCH (10:24)
--- NOTE | 2018-02-03 13:17 | VASCLAB ---
Date of service: 02/02/2018 PROCEDURE: Carotid Duplex Exam. HISTORY: Carotid stenosis COMPARISON: None available. TECHNIQUE: Grayscale and duplex Doppler evaluation of the cervical carotid and vertebral arteries were performed. The common carotid, carotid bifurcations and cervical Internal Carotid Artery (ICA) and proximal External Carotid Artery (ECA) were evaluated. The vertebral arteries were evaluated for gross patency and flow direction. Report prepared by Arcenio Mcbride, BS, RVT FINDINGS: RIGHT CAROTID ARTERIES: 1. Common Carotid Artery: Heterogeneous plaque formation of the right common carotid artery. Maximum Peak Systolic velocity: 118 cm/sec: End-diastolic velocity 24 cm/sec. 2. Carotid Bifurcation: Heterogeneous plaque formation. Maximum Peak Systolic velocity: 123 cm/sec: End-diastolic velocity 25 cm/sec. 3. Internal Carotid Artery: Plaque description: Heterogeneous 3.1. Proximal Segment: Peak systolic velocity 97 cm/sec: End-diastolic velocity 32 cm/sec - % stenosis 0-15% 3.2. Middle Segment: Peak systolic velocity 126 cm/sec: End-diastolic velocity 36 cm/sec - % stenosis 0-15% 3.3. Distal Segment: Peak systolic velocity 96 cm/sec: End-diastolic velocity 36 cm/sec - % stenosis 0-15% 4. External Carotid Artery: Homogeneous plaque formation. Peak systolic velocity 205 cm/sec 5. ICA/CCA Ratio: 1.1 LEFT CAROTID ARTERIES: 1. Common Carotid Artery: Homogeneous plaque formation of the left common carotid artery. Maximum Peak Systolic velocity: 177 cm/sec: End-diastolic velocity 31 cm/sec. 2. Carotid Bifurcation: Calcific plaque formation. Maximum Peak Systolic velocity: 131 cm/sec: End-diastolic velocity 24 cm/sec. 3. Internal Carotid Artery: Plaque description: Minimal calcific 3.1. Proximal Segment: Peak systolic velocity 128 cm/sec: End-diastolic velocity 35 cm/sec - % stenosis 0-15% 3.2. Middle Segment: Peak systolic velocity 114 cm/sec: End-diastolic velocity 30 cm/sec - % stenosis 0-15% 3.3. Distal Segment: Peak systolic velocity 94 cm/sec: End-diastolic velocity 35 cm/sec - % stenosis 0-15% 4. External Carotid Artery: Homogeneous plaque formation. Peak systolic velocity 261 cm/sec 5. ICA/CCA Ratio: 0.7 VERTEBRAL ARTERIES: 1. Right Vertebral Artery: The right vertebral artery flow direction is antegrade. 2. Left Vertebral Artery: The left vertebral artery flow direction is antegrade. OTHER FINDINGS: 1. Right Brachial Blood pressure: 178 mmHg. 2. Left Brachial Blood pressure: Unable to obtain. IMPRESSION: RIGHT: Duplex scan does not suggest hemodynamically significant stenosis of the right extracranial carotid arteries. LEFT: Duplex scan does not suggest hemodynamically significant stenosis of the left extracranial carotid arteries.
--- NOTE | 2018-02-03 13:18 | VASCLAB ---
Date of service: 02/02/2018 PROCEDURE: Lower Extremity Venous Duplex Exam. HISTORY: Leg swelling PRIORS: None. TECHNIQUE: Bilateral common femoral, femoral, popliteal and posterior tibial, peroneal and great saphenous veins were evaluated. Flow was assessed with color Doppler, compressibility, assessment of phasic flow and augmentation response. Report prepared by Arcenio Mcbride, RENE, RVT FINDINGS: RIGHT: 1. Common Femoral Vein: 1.1. Compressibility - Fully compressible: Thrombus - None : Flow - Phasic: Augmentation -Normal: Reflux - None. 2. Femoral Vein: 2.1. Compressibility - Fully compressible: Thrombus - None : Flow - Phasic: Augmentation -Normal: Reflux - None. 3. Popliteal Vein: 3.1. Compressibility - Fully compressible: Thrombus - None : Flow - Phasic: Augmentation -Normal: Reflux - None. 4. Posterior Tibial Vein: 4.1. Compressibility - Fully compressible: Thrombus - None: Flow - Phasic: Augmentation -Normal: Reflux - None. 5. Peroneal Vein: 5.1. Compressibility - Fully compressible: Thrombus - None: Flow - Phasic: Augmentation -Normal: Reflux - None. 6. Great Saphenous Vein: 6.1. Compressibility - Fully compressible: Thrombus - None: Flow - Phasic: Augmentation - Normal: Reflux - None. LEFT: 1. Common Femoral Vein: 1.1. Compressibility - Fully compressible: Thrombus - None: Flow - Phasic: Augmentation -Normal: Reflux - None. 2. Femoral Vein: 2.1. Compressibility - Fully compressible: Thrombus - None: Flow - Phasic: Augmentation -Normal: Reflux - None. 3. Popliteal Vein: 3.1. Compressibility - Fully compressible: Thrombus - None : Flow - Phasic: Augmentation -Normal: Reflux - None. 4. Posterior Tibial Vein: 4.1. Compressibility - Fully compressible: Thrombus - None: Flow - Phasic: Augmentation -Normal: Reflux - None. 5. Peroneal Vein: 5.1. Compressibility - Fully compressible: Thrombus - None: Flow - Phasic: Augmentation -Normal: Reflux - None. 6. Great Saphenous Vein: 6.1. Compressibility - Fully compressible: Thrombus - None: Flow - Phasic: Augmentation - Normal: Reflux - None. OTHER FINDINGS: Right: None significant. Left: None significant. IMPRESSION: Right: No evidence of deep or superficial vein thrombosis of the right lower extremity. Normal valve function noted of the right side. Left: No evidence of deep or superficial vein thrombosis of the left lower extremity. Normal valve function noted of the left side.
[2018-02-03 13:24] LABS: FOLATE 11.9 ng/mL
--- NOTE | 2018-02-03 14:29 | CARD ---
APPROVED REPORT Date of service: 02/02/2018 EXAM: Two-dimensional and M-mode echocardiogram with Doppler and color Doppler. Other Information Quality : GoodRhythm : INDICATION coronary stent RISK FACTORS Hypertension 2D DIMENSIONS IVSd0.8 (0.7-1.1cm)LVDd3.7 (3.9-5.9cm) PWd0.8 (0.7-1.1cm)LA [id number] (18-58mL) LVDs2.3 (2.5-4.0cm)FS (%) 37.3 % LVEF (%)68.1 (>50%)LVEF (Andrade's)57.00 % IVC0.00 cm M-Mode DIMENSIONS RVDd1.51 (2.1-3.2cm)Left Atrium (MM)3.09 (2.5-4.0cm) IVSd1.07 (0.7-1.1cm)Aortic Root3.52 (2.2-3.7cm) LVDd5.09 (4.0-5.6cm)Aortic Cusp Exc.2.15 (1.5-2.0cm) PWd1.14 (0.7-1.1cm)FS (%) 32 % LVDs3.47 (2.0-3.8cm)LVEF (%)60 (>50%) Aortic Valve AI P 1/2 [id number] Mitral Valve MV E Fwskevic45.5cm/sMV A Kjqpvyjz15.7cm/sE/A ratio0.9 TDI E/Lateral E'0.0E/Medial E'0.0 Tricuspid Valve TR Peak Vnepydak776gs/sTR Peak Gr.[id number] LEFT VENTRICLE The left ventricle is normal size. There is normal left ventricular wall thickness. The left ventricular function is normal. The left ventricular ejection fraction is within the normal range. No regional wall motion abnormalities noted. The left ventricular diastolic function is normal. No left ventricle thrombus noted on this study. There is no ventricular septal defect visualized. There is no left ventricular aneurysm. There is no mass noted in the left ventricle. RIGHT VENTRICLE The right ventricle is normal size. There is normal right ventricular wall thickness. The right ventricular systolic function is normal. ATRIA The left atrium size is normal. The right atrium size is normal. The interatrial septum is intact with no evidence for an atrial septal defect. AORTIC VALVE The aortic valve is normal in structure and function. No aortic regurgitation is present. There is no aortic valvular stenosis. There is no aortic valvular vegetation. MITRAL VALVE The mitral valve is normal in structure and function. There is no evidence of mitral valve prolapse. There is no mitral valve stenosis. Mitral regurgitation is mild. TRICUSPID VALVE The tricuspid valve is normal in structure and function. There is mild tricuspid regurgitation. Right ventricular systolic pressure is estimated at less than 30 mmHg. There is no tricuspid valve prolapse or vegetation. There is no tricuspid valve stenosis. PULMONIC VALVE The pulmonary valve is normal in structure and function. There is no pulmonic valvular regurgitation. There is no pulmonic valvular stenosis. GREAT VESSELS The aortic root is normal in size. The ascending aorta is normal in size. The pulmonary artery is normal. The IVC is normal in size and collapses >50% with inspiration. PERICARDIAL EFFUSION The pericardium appears normal. There is no pleural effusion. <Conclusion> The left ventricular function is normal. The left ventricular ejection fraction is within the normal range. No regional wall motion abnormalities noted. Mitral regurgitation is mild.
--- NOTE | 2018-02-03 15:53 | MRI ---
Date of service: 02/03/2018 PROCEDURE: MR LUMBAR SPINE WITHOUT CONTRAST HISTORY: HNP / STENOSIS COMPARISON: None available. TECHNIQUE: Multiecho multiplanar sequences were performed through the lumbar spine without the use of intravenous contrast. FINDINGS: Normal lumbar lordosis. Vertebral body heights are preserved. Marrow signal unremarkable. Conus medullaris unremarkable at the level of T12-L1. Paraspinal soft tissues are unremarkable. T12-L1: No disc herniation, spinal canal stenosis or neural foraminal narrowing. L1-2: No disc herniation, spinal canal stenosis or neural foraminal narrowing. L2-3: No disc herniation, spinal canal stenosis or neural foraminal narrowing. L3-4: No disc herniation, spinal canal stenosis or neural foraminal narrowing. L4-5: Disc dehydration with disc bulge with thecal sac indentation and bilateral foraminal stenosis with accompanying facet arthropathy. L5-S1: Disc dehydration with disc bulge with thecal sac indentation and bilateral foraminal stenosis with accompanying facet arthropathy. OTHER FINDINGS: None. IMPRESSION: L4-5: Disc dehydration with disc bulge with thecal sac indentation and bilateral foraminal stenosis with accompanying facet arthropathy. L5-S1: Disc dehydration with disc bulge with thecal sac indentation and bilateral foraminal stenosis with accompanying facet arthropathy.
[2018-02-03] MEDS: Vancomycin 750mg/NS 150 ml 150 ML IVPB SCH (16:00)
--- NOTE | 2018-02-03 17:21 | CP.PCM.PN ---
Subjective - Date & Time of Evaluation Date of Evaluation: 02/03/18 Time of Evaluation: 09:15 - Subjective Subjective: clinically same Objective - Vital Signs/Intake and Output Vital Signs (last 24 hours): Temp Pulse Resp BP Pulse Ox 98.9 F 86 20 124/70 97 02/03/18 15:47 02/03/18 15:47 02/03/18 15:47 02/03/18 15:47 02/03/18 15:47 Intake and Output: 02/03/18 02/03/18 06:59 18:59 Intake Total 120 Output Total 300 Balance -180 - Medications Medications: Current Medications Clopidogrel Bisulfate (Plavix) 75 mg PO DAILY [facility] Last Admin: 02/03/18 10:23 Dose: 75 mg Enoxaparin Sodium (Lovenox) 40 mg SC DAILY [facility] Last Admin: 02/03/18 10:24 Dose: 40 mg Ergocalciferol (Drisdol 50,000 Intl Units Cap) 1 cap PO Q7D [facility] Stop: 04/19/18 06:01 Last Admin: 02/01/18 06:11 Dose: 1 cap Vancomycin HCl 1 gm/ Sodium (Chloride) 250 mls @ 166.7 mls/hr IVPB Q24H [facility]; Protocol Last Admin: 02/03/18 15:51 Dose: 166.7 mls/hr Insulin Aspart (Novolog) 0 unit SC ACHS [facility]; Protocol Last Admin: 02/03/18 12:34 Dose: 3 u Pantoprazole Sodium (Protonix Ec Tab) 40 mg PO DAILY [facility] Last Admin: 02/03/18 10:23 Dose: 40 mg Rosuvastatin Calcium (Crestor) [address] [facility] Saccharomyces Boulardii (Florastor) 250 mg PO DAILY [facility] Last Admin: 02/03/18 10:24 Dose: 250 mg Trimethoprim/Sulfamethoxazole (Bactrim Ds Tab) 1 tab PO Q12H [facility]; Protocol Last Admin: 02/03/18 06:17 Dose: 1 tab - Labs Labs: 02/03/18 06:56 02/03/18 06:56 - Constitutional Appears: Well - Head Exam Head Exam: ATRAUMATIC, NORMAL INSPECTION, NORMOCEPHALIC - Eye Exam Eye Exam: EOMI, Normal appearance, PERRL Pupil Exam: NORMAL ACCOMODATION, PERRL - ENT Exam ENT Exam: Mucous Membranes Moist, Normal Exam - Neck Exam Neck Exam: Full ROM, Normal Inspection. absent: Lymphadenopathy - Respiratory Exam Respiratory Exam: Decreased Breath Sounds - Cardiovascular Exam Cardiovascular Exam: REGULAR RHYTHM, +S1, +S2 - GI/Abdominal Exam GI & Abdominal Exam: Soft, Diminished Bowel Sounds - Rectal Exam Rectal Exam: Deferred
--- NOTE | 2018-02-03 21:58 | CP.PCM.PN ---
Subjective - Date & Time of Evaluation Date of Evaluation: 02/03/18 Time of Evaluation: 21:58 - Subjective Subjective: afebrile Continues to complain of weakness both lower extremities AND RECURRENT FALLS. On IV antibiotics for cellulitis, NEUROLOGY WORKUP IN PROGRESS.. MRI BRAIN-VE AND ACUTE ICA OR INFARCTION. LAB ; VANCO TROUGH <5.0. Objective - Vital Signs/Intake and Output Vital Signs (last 24 hours): Temp Pulse Resp BP Pulse Ox 98.9 F 86 20 124/70 97 02/03/18 15:47 02/03/18 15:47 02/03/18 15:47 02/03/18 15:47 02/03/18 15:47 - Medications Medications: Current Medications Clopidogrel Bisulfate (Plavix) 75 mg PO DAILY [facility] Last Admin: 02/03/18 10:23 Dose: 75 mg Enoxaparin Sodium (Lovenox) 40 mg SC DAILY [facility] Last Admin: 02/03/18 10:24 Dose: 40 mg Ergocalciferol (Drisdol 50,000 Intl Units Cap) 1 cap PO Q7D [facility] Stop: 04/19/18 06:01 Last Admin: 02/01/18 06:11 Dose: 1 cap Vancomycin HCl 750 mg/ Sodium (Chloride) 250 mls @ 166.6 mls/hr IVPB Q12H [facility]; Protocol Insulin Aspart (Novolog) 0 unit SC ACHS [facility]; Protocol Last Admin: 02/03/18 21:52 Dose: Not Given Pantoprazole Sodium (Protonix Ec Tab) 40 mg PO DAILY [facility] Last Admin: 02/03/18 10:23 Dose: 40 mg Rosuvastatin Calcium (Crestor) 10 mg PO [facility] Saccharomyces Boulardii (Florastor) 250 mg PO DAILY [facility] Last Admin: 02/03/18 10:24 Dose: 250 mg Trimethoprim/Sulfamethoxazole (Bactrim Ds Tab) 1 tab PO Q12H [facility]; Protocol Last Admin: 02/03/18 17:50 Dose: 1 tab - Labs Labs: 02/03/18 06:56 02/03/18 06:56 - Constitutional Appears: No Acute Distress, Cachectic, Chronically Ill - Head Exam Head Exam: NORMAL INSPECTION - Eye Exam Eye Exam: EOMI - ENT Exam ENT Exam: Normal Oropharynx - Neck Exam Neck Exam: Full ROM, Normal Inspection - Respiratory Exam Respiratory Exam: Clear to Ausculation Bilateral, NORMAL BREATHING PATTERN - Cardiovascular Exam Cardiovascular Exam: REGULAR RHYTHM, +S1, +S2 - GI/Abdominal Exam GI & Abdominal Exam: Soft, Normal Bowel Sounds. absent: Tenderness - Extremities Exam Extremities Exam: Normal Capillary Refill (BILATERAL LOWER EXTREMITYCELLULITIS MUCH IMPROVED. cHRONIC HEALEDuLCERS OR LACERATIONS). absent: Calf Tenderness, Pedal Edema - Neurological Exam Neurological Exam: Awake, CN II-XII Intact, Oriented x3, Reflexes Normal - Psychiatric Exam Psychiatric exam: Normal Mood - Skin Skin Exam: Normal Color, Warm Assessment and Plan (1) Cellulitis of both lower extremities Status: Acute (2) Diabetes mellitus Status: Acute (3) Frequent falls Status: Acute (4) Nodule of right lung Status: Acute - Assessment and Plan (Free Text) Plan: NEUR RAY IN PROGRESS CAROTID DOPPLERS-P B/L VENOUS dOPPLER RULED OUT DVT--NOTED -VE DVT. CONTINUE ON iv VANCOMYCIN 1 G ONCE A DAY DAILY 01/30/18 CHANGE VANCOMYCIN TO 750 MG EVERY 12 HOURLY ( 02/03/18)FIRST DOSE TONIGHT CONTINUE ON PO BACTRIM 1DS PO BID 01/30/18. MONITOR LIVER FUNCTION TESTS CLOSELY.
[2018-02-03] MEDS ORDERED: Vancomycin 750mg/NS 150 ml 150 ML IVPB SCH (22:30)
[2018-02-04] MEDS: Vancomycin 750mg/NS 150 ml 150 ML IVPB SCH (04:12)
[2018-02-04] MEDS: Tmp-Smz 800 mg-160 mg DS Tab PO SCH ×2 (06:04→18:20)
[2018-02-04] MEDS: (Novolog) Insulin Aspart, Recombinant 100 u/ml 10 ml vial SC SCH ×4 (07:51→22:00)
--- NOTE | 2018-02-04 08:35 | EEG ---
DATE: 02/02/2018 This is a 16-channel electroencephalogram of awake adult. During the study, photic stimulation was performed. Hyperventilation was not performed. The resting electroencephalogram consists of 30 to 40 mV, 4-6 Hz of delta mixed with theta activities noted at posterior dominant rhythm. Intermittent movement artifact contaminated the background rhythm. Photic stimulation did not evoke any response noted at 2 to 20 Hz. IMPRESSION: This is an abnormal electroencephalogram because of the persistent slowing throughout the record suggestive of bilateral cerebral dysfunction This is probably secondary to metabolic vascular degenerative process. Please correlate the finding with the neurological and radiological studies. However, clinical suspicion is high. Please consider him to have extended hour ambulatory video electroencephalogram. This can be done as outpatient. Julio Cesar Meyer MD
--- NOTE | 2018-02-04 09:25 | CP.PCM.PN ---
Objective - Vital Signs/Intake and Output Vital Signs (last 24 hours): Temp Pulse Resp BP Pulse Ox 100.5 F H 84 20 117/59 L 96 02/04/18 08:39 02/04/18 08:39 02/04/18 08:39 02/04/18 08:39 02/04/18 08:39 Intake and Output: 02/04/18 02/04/18 06:59 18:59 Intake Total 240 Balance 240 - Medications Medications: Current Medications Clopidogrel Bisulfate (Plavix) 75 mg PO DAILY [facility] Last Admin: 02/03/18 10:23 Dose: 75 mg Enoxaparin Sodium (Lovenox) 40 mg SC DAILY [facility] Last Admin: 02/03/18 10:24 Dose: 40 mg Ergocalciferol (Drisdol 50,000 Intl Units Cap) 1 cap PO Q7D [facility] Stop: 04/19/18 06:01 Last Admin: 02/01/18 06:11 Dose: 1 cap Vancomycin HCl (Vancocin 750mg/Ns 150 Ml) 150 mls @ 150 mls/hr IVPB Q12H [facility]; Protocol Stop: 02/08/18 04:01 Last Admin: 02/04/18 04:12 Dose: 150 mls/hr Insulin Aspart (Novolog) 0 unit SC ACHS [facility]; Protocol Last Admin: 02/04/18 07:51 Dose: 1 u Pantoprazole Sodium (Protonix Ec Tab) 40 mg PO DAILY [facility] Last Admin: 02/03/18 10:23 Dose: 40 mg Rosuvastatin Calcium (Crestor) 10 mg PO HS [facility] Last Admin: 02/03/18 22:20 Dose: 10 mg Saccharomyces Boulardii (Florastor) 250 mg PO DAILY [facility] Last Admin: 02/03/18 10:24 Dose: 250 mg Trimethoprim/Sulfamethoxazole (Bactrim Ds Tab) 1 tab PO Q12H [facility]; Protocol Last Admin: 02/04/18 06:04 Dose: 1 tab - Labs Labs: 02/03/18 06:56 02/03/18 06:56
[2018-02-04] MEDS ORDERED: Dextrose 50% SYRINGE Inj (50 ml) IV PRN (09:27)
[2018-02-04] MEDS ORDERED: Glucagon Recombinant 1 mg Inj IM PRN (09:27)
[2018-02-04] MEDS: Pantoprazole 40 mg EC Tab PO SCH (10:11)
[2018-02-04] MEDS: Saccharomyces Boulardi 250 mg Cap PO SCH (10:11)
[2018-02-04] MEDS: Enoxaparin 40 mg Syringe SC SCH (10:11)
--- NOTE | 2018-02-04 10:47 | PN ---
DATE: 02/04/2018 TIME OF EVALUATION: 07:15 a.m. NEUROLOGICAL PROBLEM: Lumbosacral stenosis superimposed with neuropathy. PHYSICAL EXAMINATION: VITAL SIGNS: Blood pressure 126/72, mean artery pressure of 90, respiratory rate 18, pulse rate 97, regular sinus rhythm, temperature 99 degree Fahrenheit. The patient is sleepy, arousable on calling his first name. The patient complains inability to walk. He claims that he has not gotten physical therapy. His workup including MRI of the lumbosacral spine showed neuroforaminal stenosis at L5-S1 region with arthrosis. His examination unchanged compared with my previous examination. The patient has to get out of the bed and physical therapy should be instituted. The patient rest of the workup including nerve conduction studies and electromyography that can be done as outpatient. Physiotherapy should be continued following his discharge. At this point his workup from neurological point of view is all completed. The patient can be discharged when medically stable. I am signing him off from followup. Julio Cesar Meyer MD
[2018-02-04 11:10] LABS: BASO # 0.1 K/uL (0.0-0.2); BASO % 0.6 % (0.0-2.0); EOS % 0.4 % (0.0-4.0); HEMOGLOBIN 14.3 g/dL (12.0-18.0); LYMPH # 1.1 K/uL (1.0-4.3); LYMPH % 11.4 % (20.0-40.0); MEAN CELL VOLUME 91.1 fL (80.0-94.0); MEAN CORPUSCULAR HEMOGLOBIN 31.2 pg (27.0-31.0); MEAN CORPUSCULAR HGB CONC 34.2 g/dL (33.0-37.0); MONO # 1.1 K/uL (0.0-0.8); MONO % 11.5 % (0.0-10.0); NEUT # 7.2 K/uL (1.8-7.0); NEUT % 76.1 % (50.0-75.0); RBC 4.58 Mil/uL (4.40-5.90); WHITE BLOOD COUNT 9.5 K/uL (4.8-10.8)
[2018-02-04 11:57] LABS: ALBUMIN 3.9 g/dL (3.5-5.0); ALT/SGPT 41 U/L (21-72); AST/SGOT 27 U/L (17-59); BLOOD UREA NITROGEN 19 mg/dL (9-20); CALCIUM 8.7 mg/dl (8.6-10.4); GFR NON-AFRICAN AMERICAN > 60
[2018-02-04] MEDS ORDERED: Lidocaine 4% (Laryng-O-Jet) Kit MM ONE (12:52)
--- NOTE | 2018-02-04 17:17 | RAD ---
Date of service: 02/04/2018 PROCEDURE: Bilateral Ankle Radiographs. HISTORY: pain upon walking COMPARISON: None available. FINDINGS: BONES: Right Ankle: Normal. No fracture. Left Ankle: Normal. No fracture. JOINTS: Right Ankle: Normal. No osteoarthritis. Ankle mortise maintained. Talar dome intact. Left Ankle: Normal. No osteoarthritis. Ankle mortise maintained. Talar dome intact. SOFT TISSUES: Right Ankle: Normal. Left Ankle: Normal. OTHER FINDINGS: None. IMPRESSION: Normal bilateral ankle radiographs.
--- NOTE | 2018-02-04 17:18 | RAD ---
Date of service: 02/04/2018 PROCEDURE: Bilateral Feet Radiographs. HISTORY: pain upon walking COMPARISON: None. FINDINGS: BONES: Right Foot: Normal. No fracture. Left Foot: Normal. No fracture. JOINTS: Right Foot: Mild hallux valgus. No evidence of arthritis. Left Foot: Normal. No osteoarthritis. SOFT TISSUES: Right Foot: Normal. Left Foot: Normal. OTHER FINDINGS: None. IMPRESSION: Mild right hallux valgus. Otherwise unremarkable examination.
[2018-02-04 19:05] LABS: LYME IGG NEGATIVE (NEGATIVE)
--- NOTE | 2018-02-04 21:49 | CP.PCM.PN ---
Subjective - Subjective Subjective: dictated Objective - Vital Signs/Intake and Output Vital Signs (last 24 hours): Temp Pulse Resp BP Pulse Ox 98.5 F 96 H 20 138/78 100 02/04/18 15:47 02/04/18 15:47 02/04/18 15:47 02/04/18 15:47 02/04/18 15:47 Intake and Output: 02/04/18 02/05/18 18:59 06:59 Intake Total 250 Output Total 650 Balance -400 - Medications Medications: Current Medications Clopidogrel Bisulfate (Plavix) 75 mg PO DAILY [facility] Last Admin: 02/04/18 10:11 Dose: 75 mg Dextrose (Dextrose 50% Inj) 0 ml IV STAT PRN; Protocol PRN Reason: Hypoglycemia Protocol Dextrose (Glutose 15) 0 gm PO ONCE PRN; Protocol PRN Reason: Hypoglycemia Protocol Ergocalciferol (Drisdol 50,000 Intl Units Cap) 1 cap PO Q7D [facility] Stop: 04/19/18 06:01 Last Admin: 02/01/18 06:11 Dose: 1 cap Gabapentin (Neurontin) 300 mg PO BID [facility] Last Admin: 02/04/18 18:20 Dose: 300 mg Glucagon (Glucagen Diagnostic Kit) 0 mg IM STAT PRN; Protocol PRN Reason: Hypoglycemia Protocol Heparin Sodium (Porcine) (Heparin) 5,000 units SC Q8 [facility] Dextrose (Dextrose 5% In Water 1000 Ml) 1,000 mls @ 0 mls/hr IV .Q0M PRN; Protocol PRN Reason: Hypoglycemia Protocol Insulin Aspart (Novolog) 0 unit SC ACHS [facility]; Protocol Last Admin: 02/04/18 16:35 Dose: Not Given Pantoprazole Sodium (Protonix Ec Tab) 40 mg PO DAILY [facility] Last Admin: 02/04/18 10:11 Dose: 40 mg Rosuvastatin Calcium (Crestor) 10 mg PO HS [facility] Last Admin: 02/03/18 22:20 Dose: 10 mg Saccharomyces Boulardii (Florastor) 250 mg PO DAILY [facility] Last Admin: 02/04/18 10:11 Dose: 250 mg Trimethoprim/Sulfamethoxazole (Bactrim Ds Tab) 1 tab PO Q12H [facility]; Protocol Last Admin: 02/04/18 18:20 Dose: 1 tab - Labs Labs: 02/04/18 11:06 02/04/18 11:06
--- NOTE | 2018-02-04 22:47 | CP.PCM.PN ---
Subjective - Date & Time of Evaluation Date of Evaluation: 02/04/18 Time of Evaluation: 22:47 - Subjective Subjective: afebrile Continues to complain of PAIN /weakness both lower extremities AND RECURRENT FALLS. B/L CELLULITIS LOWER EXTREMITIES MUCH IMPROVED CASE DISCUSSED WITH RESIDENT .DC IV VANCOMYCIN .BACTRIM ONE DS POBID X5 DAYS. MAY ADD PO NEURONTIN 3OOMG PO BID FOR PERIPHERAL NEUROPATHY DISCUSSED WITH THE RESIDENT. Objective - Vital Signs/Intake and Output Vital Signs (last 24 hours): Temp Pulse Resp BP Pulse Ox 98.5 F 96 H 20 138/78 100 02/04/18 15:47 02/04/18 15:47 02/04/18 15:47 02/04/18 15:47 02/04/18 15:47 Intake and Output: 02/04/18 02/05/18 18:59 06:59 Intake Total 250 Output Total 650 Balance -400 - Medications Medications: Current Medications Clopidogrel Bisulfate (Plavix) 75 mg PO DAILY [facility] Last Admin: 02/04/18 10:11 Dose: 75 mg Dextrose (Dextrose 50% Inj) 0 ml IV STAT PRN; Protocol PRN Reason: Hypoglycemia Protocol Dextrose (Glutose 15) 0 gm PO ONCE PRN; Protocol PRN Reason: Hypoglycemia Protocol Ergocalciferol (Drisdol 50,000 Intl Units Cap) 1 cap PO Q7D [facility] Stop: 04/19/18 06:01 Last Admin: 02/01/18 06:11 Dose: 1 cap Gabapentin (Neurontin) 300 mg PO BID [facility] Last Admin: 02/04/18 18:20 Dose: 300 mg Glucagon (Glucagen Diagnostic Kit) 0 mg IM STAT PRN; Protocol PRN Reason: Hypoglycemia Protocol Heparin Sodium (Porcine) (Heparin) 5,000 units SC Q8 [facility] Dextrose (Dextrose 5% In Water 1000 Ml) 1,000 mls @ 0 mls/hr IV .Q0M PRN; Protocol PRN Reason: Hypoglycemia Protocol Insulin Aspart (Novolog) 0 unit SC ACHS [facility]; Protocol Last Admin: 02/04/18 16:35 Dose: Not Given Pantoprazole Sodium (Protonix Ec Tab) 40 mg PO DAILY [facility] Last Admin: 02/04/18 10:11 Dose: 40 mg Rosuvastatin Calcium (Crestor) 10 mg PO HS [facility] Last Admin: 02/04/18 22:31 Dose: 10 mg Saccharomyces Boulardii (Florastor) 250 mg PO DAILY [facility] Last Admin: 02/04/18 10:11 Dose: 250 mg Trimethoprim/Sulfamethoxazole (Bactrim Ds Tab) 1 tab PO Q12H [facility]; Protocol Last Admin: 02/04/18 18:20 Dose: 1 tab - Labs Labs: 02/04/18 11:06 02/04/18 11:06 - Constitutional Appears: No Acute Distress, Cachectic, Chronically Ill - Head Exam Head Exam: NORMAL INSPECTION - Eye Exam Eye Exam: EOMI, PERRL - ENT Exam ENT Exam: Normal Oropharynx - Neck Exam Neck Exam: Normal Inspection - Respiratory Exam Respiratory Exam: Clear to Ausculation Bilateral, NORMAL BREATHING PATTERN - Cardiovascular Exam Cardiovascular Exam: REGULAR RHYTHM, +S1, +S2 - GI/Abdominal Exam GI & Abdominal Exam: Soft, Normal Bowel Sounds - Extremities Exam Extremities Exam: Normal Capillary Refill (BILATERAL LOWER EXTREMITY CELLULITIS IMPROVED.). absent: Calf Tenderness, Pedal Edema - Neurological Exam Neurological Exam: Awake, CN II-XII Intact - Psychiatric Exam Psychiatric exam: Flat Affect - Skin Skin Exam: Normal Color, Warm Assessment and Plan (1) Cellulitis of both lower extremities Assessment & Plan: IMPROVED. DC IV VANCOMYCIN PO BACTRIM IDS BID [id number] Status: Acute (2) Diabetes mellitus Status: Acute (3) Frequent falls Assessment & Plan: NEUROLOGY WORKUP IN PROGRESS Status: Acute (4) Nodule of right lung Assessment & Plan: PER PMD .. Status: Acute
--- NOTE | 2018-02-05 01:35 | PN ---
DATE: 02/04/2018 SUBJECTIVE: The patient, Nathan, has low grade fever of 100.5. He has cough. He denies any chest pain. He has foot pain. He has difficulty walking. His oral intake is poor. PHYSICAL EXAMINATION: VITAL SIGNS: Blood pressure 117/59, pulse 84, respiratory rate 20, and temperature 100.5, now it is 98.5. LUNGS: Bilateral scattered rales. CARDIOVASCULAR SYSTEM: S1 and S2 regular. ABDOMEN: Soft. Nontender. ASSESSMENT: 1. Decreased urinary input. Rule out urinary tract infection. 2. Foot pain. Rule out osteoarthritis versus gouty arthritis. 3. Coronary artery disease, on medical management. 4. Hyperlipidemia. 5. Bronchial asthma. PLAN: level, oral antibiotics, cardiac medications, and physical therapy and rehab. Monitor the patient. Lincoln Shahid MD
[2018-02-05] MEDS: Tmp-Smz 800 mg-160 mg DS Tab PO SCH ×2 (05:59→19:13)
[2018-02-05 06:46] LABS: URINE BACTERIA FEW (<OCC); URINE BILIRUBIN NEGATIVE (NEGATIVE); URINE BLOOD NEGATIVE (NEGATIVE); URINE CLARITY Turbid (Clear); URINE COLOR Yellow (YELLOW); URINE GLUCOSE (UA) 3+ mg/dL (Normal); URINE LEUKOCYTE ESTERASE NEG Leu/uL (Negative); URINE PROTEIN NEGATIVE (NEGATIVE); URINE URIC ACID CRYSTALS MANY /hpf (<OCC); URINE UROBILINOGEN NORMAL mg/dL (0.2-1.0)
[2018-02-05] MEDS: (Novolog) Insulin Aspart, Recombinant 100 u/ml 10 ml vial SC SCH ×3 (08:54→19:18)
[2018-02-05] MEDS: Pantoprazole 40 mg EC Tab PO SCH (10:46)
[2018-02-05] MEDS: Saccharomyces Boulardi 250 mg Cap PO SCH (10:49)
[2018-02-05 17:00] VITALS: O2SAT 95
--- NOTE | 2018-02-05 22:23 | CARD ---
APPROVED REPORT Date of service: 01/30/2018 EKG Measurement Heart [id number] <Conclusion> Atrial fibrillation Left axis deviation Abnormal ECG
--- NOTE | 2018-02-05 23:44 | CP.PCM.DIS ---
Provider - Provider Date of Admission: 01/30/18 00:52 Attending physician: Lincoln Shahid MD Consults: 01/30/18 08:43 Physician Consult Routine Comment: Consulting Provider: Julio Cesar Meyer Consulting Physician: Julio Cesar Meyer Reason for Consult: freq falls 01/30/18 08:44 Physician Consult Routine Comment: Consulting Provider: Marilee Sullivan Consulting Physician: Marilee Sullivan Reason for Consult: cellulitis Hospital Course - Lab Results Lab Results: Micro Results 01/29/18 22:07 Blood-Venous Blood Culture - Final NO GROWTH AFTER 5 DAYS 01/29/18 22:07 Blood-Venous Gram Stain - Final TEST NOT PERFORMED 01/30/18 19:48 Naris MRSA Culture (Admit) - Final MRSA NOT DETECTED Most Recent Lab Values WBC 9.5 K/uL (4.8-10.8) 02/04/18 11:06 RBC 4.58 Mil/uL (4.40-5.90) 02/04/18 11:06 Hgb 14.3 g/dL (12.0-18.0) 02/04/18 11:06 Hct 41.7 % (35.0-51.0) 02/04/18 11:06 MCV 91.1 fL (80.0-94.0) 02/04/18 11:06 MCH 31.2 pg (27.0-31.0) H 02/04/18 11:06 MCHC 34.2 g/dL (33.0-37.0) 02/04/18 11:06 RDW 13.0 % (11.5-14.5) 02/04/18 11:06 Plt Count 189 K/uL (130-400) 02/04/18 11:06 MPV 11.0 fL (7.2-11.7) 02/04/18 11:06 Neut % (Auto) 76.1 % (50.0-75.0) H 02/04/18 11:06 Lymph % (Auto) 11.4 % (20.0-40.0) L 02/04/18 11:06 [place] % (Auto) 11.5 % (0.0-10.0) H 02/04/18 11:06 Eos % (Auto) 0.4 % (0.0-4.0) 02/04/18 11:06 Baso % (Auto) 0.6 % (0.0-2.0) 02/04/18 11:06 Neut # (Auto) 7.2 K/uL (1.8-7.0) H 02/04/18 11:06 Lymph # (Auto) 1.1 K/uL (1.0-4.3) 02/04/18 11:06 [place] # (Auto) 1.1 K/uL (0.0-0.8) H 02/04/18 11:06 Eos # (Auto) 0.0 K/uL (0.0-0.7) 02/04/18 11:06 Baso # (Auto) 0.1 K/uL (0.0-0.2) 02/04/18 11:06 ESR 40 mm/hr (0-15) H 01/31/18 08:47 D-Dimer, Quantitative < 200 ng/mlDDU (0-243) 01/31/18 08:47 Sodium 130 mmol/L (132-148) L 02/04/18 11:06 Potassium 4.9 mmol/L (3.6-5.2) 02/04/18 11:06 Chloride 95 mmol/L (98-107) L 02/04/18 11:06 Carbon Dioxide 27 mmol/L (22-30) 02/04/18 11:06 Anion Gap 12 (10-20) 02/04/18 11:06 BUN 19 mg/dL (9-20) 02/04/18 11:06 Creatinine 0.9 mg/dL (0.8-1.5) 02/04/18 11:06 Est GFR ( Amer) > 60 02/04/18 11:06 Est GFR (Non-Af Amer) > 60 02/04/18 11:06 POC Glucose (mg/dL) 226 mg/dL (65-110) H 02/05/18 17:54 Random Glucose 281 mg/dL (75-110) H 02/04/18 11:06 Hemoglobin A1c 11.6 % (4.2-6.5) H 02/05/18 11:13 Calcium 8.7 mg/dl (8.6-10.4) 02/04/18 11:06 Ionized Calcium 4.8 mg/dL (4.80-5.60) 01/31/18 17:51 Phosphorus 3.4 mg/dL (2.5-4.5) 02/04/18 11:06 Magnesium 2.3 mg/dL (1.6-2.3) 02/04/18 11:06 Total Bilirubin 1.0 mg/dL (0.2-1.3) 02/04/18 11:06 Direct Bilirubin 0.5 mg/dL (0.0-0.4) H 01/31/18 08:47 AST 27 U/L (17-59) 02/04/18 11:06 ALT 41 U/L (21-72) 02/04/18 11:06 Alkaline Phosphatase 94 U/L (38-126) 02/04/18 11:06 Troponin I < 0.0120 ng/mL (0.00-0.120) 01/29/18 22:01 C-React Prot High Sens > 15.00 mg/L (1.00-3.00) H 01/31/18 08:47 NT-Pro-B Natriuret Pep 70.2 pg/mL (0-900) 01/29/18 22:01 Total Protein 7.9 g/dL (6.3-8.3) 02/04/18 11:06 Albumin 3.9 g/dL (3.5-5.0) 02/04/18 11:06 Globulin 3.9 gm/dL (2.2-3.9) 02/04/18 11:06 Albumin/Globulin Ratio 1.0 (1.0-2.1) 02/04/18 11:06 Triglycerides 160 mg/dL (0-149) H D 02/02/18 16:54 Cholesterol 222 mg/dL (0-199) H 02/02/18 16:54 LDL Cholesterol Direct 149 mg/dL (0-129) H 02/02/18 16:54 HDL Cholesterol 40 mg/dL (30-70) 02/02/18 16:54 Angiotensin Convert Enz 13 U/L (9-67) 02/03/18 11:17 Vitamin B12 394 pg/mL (239-931) 02/03/18 06:56 25-OH Vitamin D Total 18.6 NG/ML (30.0-100.0) L 02/03/18 06:56 Folate 11.9 ng/mL 02/03/18 06:56 Free T4 0.76 ng/dL (0.78-2.19) L 02/03/18 07:08 TSH 3rd Generation 2.99 mIU/L (0.46-4.68) 02/03/18 07:08 Prolactin 9.6 ng/mL (3.7-17.9) 01/31/18 17:51 Urine Color Yellow (YELLOW) 02/05/18 06:25 Urine Clarity Turbid (Clear) 02/05/18 06:25 Urine pH 5.0 (5.0-8.0) 02/05/18 06:25 Ur Specific [place] 1.023 (1.003-1.030) 02/05/18 06:25 Urine Protein Negative mg/dL (NEGATIVE) 02/05/18 06:25 Urine Glucose (UA) 3+ mg/dL (Normal) H 02/05/18 06:25 Urine Ketones Negative mg/dL (NEGATIVE) 02/05/18 06:25 Urine Blood Negative (NEGATIVE) 02/05/18 06:25 Urine Nitrate Negative (NEGATIVE) 02/05/18 06:25 Urine Bilirubin Negative (NEGATIVE) 02/05/18 06:25 Urine Urobilinogen Normal mg/dL (0.2-1.0) 02/05/18 06:25 Ur Leukocyte Esterase Neg Alysa/uL (Negative) 02/05/18 06:25 Urine WBC (Auto) < 1 /hpf (0-5) 02/05/18 06:25 Urine RBC (Auto) 2 /hpf (0-3) 02/05/18 06:25 Ur Squamous Epith Cells < 1 /hpf (0-5) 01/30/18 06:28 Uric Acid Crystals Many /hpf (<OCC) H 02/05/18 06:25 Urine Bacteria Few (<OCC) H 02/05/18 06:25 Vancomycin Trough < 5.0 ug/mL (5.0-10.0) L 02/03/18 14:16 Urine Opiates Screen Negative (NEGATIVE) 01/30/18 06:28 Urine Methadone Screen Negative (NEGATIVE) 01/30/18 06:28 Ur Barbiturates Screen Negative (NEGATIVE) 01/30/18 06:28 Ur Phencyclidine Scrn Negative (NEGATIVE) 01/30/18 06:28 Ur Amphetamines Screen Negative (NEGATIVE) 01/30/18 06:28 U Benzodiazepines Scrn Negative (NEGATIVE) 01/30/18 06:28 U Oth Cocaine Metabols Negative (NEGATIVE) 01/30/18 06:28 U Cannabinoids Screen Negative (NEGATIVE) 01/30/18 06:28 Alcohol, Quantitative < 10 mg/dl (0-10) 01/29/18 22:01 Serum Immunofixation Not detected (Not Detected) 02/03/18 11:17 RPR Nonreactive (NONREACTIVE) 02/03/18 11:17 Lyme Disease IgG Ab (IFA) Negative (NEGATIVE) 02/03/18 11:17 Discharge Exam - Head Exam Head Exam: NORMAL INSPECTION Discharge Plan - Discharge Medications Prescriptions: Sulfamethoxazole/Trimethoprim [Bactrim DS Tab] 1 tab PO Q12H #5 tab Saccharomyces Boulardi [Florastor] 250 mg PO DAILY #5 cap metFORMIN [glucOPHAGE] 500 mg PO BID #60 tab - Follow Up Plan Condition: STABLE Disposition: REHAB FACILITY/REHAB UNIT Instructions: Heart Healthy Diet, Diabetes Exchange Diet, Preventing Falls in the Older Adult, Heart Failure, Adult (DC), Diabetes Diet , Cellulitis (Skin Infection), Adult (DC) Additional Instructions: Please admit patient under Dr. Shahid service- call Dr. Shahid upon patien tarrival to the facility Continue medication as pe rmed. rec. please do blood work cbc, bmp q weekly Referrals: Lincoln Shahid MD [Staff Provider] -
[2018-02-06 23:55] VITALS: BP 147/70; PULSE 84; TEMP 98.9
== END 2018-02-05 22:06 | DRG 74 ==
LOC: C.ER 19:34 → C.9E 01-30 00:52 → C.6T 01-30 12:42
PROVIDERS: ADMIT Internal Medicine; ATTEND Internal Medicine
DX: E11.40 Type 2 diabetes mellitus with diabetic neuropathy, unspecified (principal); L03.116 Cellulitis of left lower limb; I69.954 Hemiplegia and hemiparesis following unspecified cerebrovascular disease affecting left non-dominant side; L97.909 Non-pressure chronic ulcer of unspecified part of unspecified lower leg with unspecified severity; L03.115 Cellulitis of right lower limb; M48.07 Spinal stenosis, lumbosacral region; F41.9 Anxiety disorder, unspecified; I10 Essential (primary) hypertension; Z95.5 Presence of coronary angioplasty implant and graft; J45.909 Unspecified asthma, uncomplicated; H91.90 Unspecified hearing loss, unspecified ear; Z91.19 Patient's noncompliance with other medical treatment and regimen; Z88.0 Allergy status to penicillin; R91.1 Solitary pulmonary nodule; R29.6 Repeated falls; E11.622 Type 2 diabetes mellitus with other skin ulcer; I25.10 Atherosclerotic heart disease of native coronary artery without angina pectoris; M10.9 Gout, unspecified; E78.5 Hyperlipidemia, unspecified

== ENCOUNTER 2018-02-17 11:20 | Inpatient (IN) | payer MEDICARE, OTHER ==
[2018-02-17 13:27] LABS: BASO % 0.7 % (0.0-2.0); EOS # 0.1 K/uL (0.0-0.7); EOS % 1.1 % (0.0-4.0); HEMOGLOBIN 14.7 g/dL (12.0-18.0); LYMPH # 1.1 K/uL (1.0-4.3); LYMPH % 20.5 % (20.0-40.0); MEAN CELL VOLUME 92.6 fL (80.0-94.0); MEAN CORPUSCULAR HEMOGLOBIN 31.4 pg (27.0-31.0); MEAN CORPUSCULAR HGB CONC 33.9 g/dL (33.0-37.0); MEAN PLATELET VOLUME 9.7 fL (7.2-11.7); MONO # 0.5 K/uL (0.0-0.8); MONO % 9.7 % (0.0-10.0); NEUT # 3.7 K/uL (1.8-7.0); NRBC % 0.1 % (0.0-2.0); RBC 4.68 Mil/uL (4.40-5.90); RED CELL DISTRIBUTION WIDTH 12.9 % (11.5-14.5); WHITE BLOOD COUNT 5.4 K/uL (4.8-10.8)
[2018-02-17 13:41] LABS: ALBUMIN 3.8 g/dL (3.5-5.0); ALT/SGPT 98 U/L (21-72); AST/SGOT 94 U/L (17-59); BLOOD UREA NITROGEN 15 mg/dL (9-20); CALCIUM 9.5 mg/dl (8.6-10.4); GFR NON-AFRICAN AMERICAN > 60
[2018-02-17] MEDS ORDERED: Iodixanol 320 mg/ml 150 ml Bottle IV ONE (14:38)
[2018-02-17] MEDS ORDERED: Vancomycin 1 GM 1 GM/250 ML BAG IVPB ONE (15:50)
--- NOTE | 2018-02-17 16:34 | C.PDOC ---
History Of Present Illness 67 y/o male presents to the ED sent in by Dr. Hook for evaluation of gangrene to the right toes. States the toes have been like this for 1 week. Patient states he had the same symptoms previously in both feet, which resolved without intervention. He complains of localized pain at the site. Denies any fever, chills, chest pain, SOB, leg edema, or other associated symptoms. Time Seen by Provider: 02/17/18 12:25 Chief Complaint (Nursing): Lower Extremity Problem/Injury History Per: Patient History/Exam Limitations: no limitations Onset/Duration Of Symptoms: Days Current Symptoms Are (Timing): Still Present Past Medical History Reviewed: Historical Data, Nursing Documentation, Vital Signs Vital Signs: Last Vital Signs Temp 98.2 F 02/17/18 16:18 Pulse 79 02/17/18 16:18 Resp 18 02/17/18 13:25 BP 127/76 02/17/18 16:18 Pulse Ox 98 02/17/18 16:18 - Medical History PMH: Anxiety, Asthma, CHF, COPD (asthma), Diabetes, HTN Surgical History: Coronary Stent Family History: States: Unknown Family Hx - Social History Hx Tobacco Use: No Hx Alcohol Use: No Hx Substance Use: No - Immunization History Hx Tetanus Toxoid Vaccination: No Hx Influenza Vaccination: No Hx Pneumococcal Vaccination: No Review Of Systems Constitutional: Negative for: Fever, Chills Cardiovascular: Negative for: Chest Pain Respiratory: Negative for: Shortness of Breath Musculoskeletal: Negative for: Other (Leg edema) Skin: Positive for: Other (Gangrene to the right toes) Neurological: Negative for: Weakness Physical Exam - Physical Exam Appears: Non-toxic, No Acute Distress Skin: Warm, Dry Head: Atraumatic, Normacephalic Eye(s): bilateral: Normal Inspection, PERRL, EOMI Neck: Normal ROM Chest: Symmetrical Cardiovascular: Rhythm Regular, No Murmur Respiratory: Normal Breath Sounds, No Accessory Muscle Use, Other (No respiratory distress) Gastrointestinal/Abdominal: Soft, No Tenderness, No Distention Extremity: No Calf Tenderness, No Swelling (or erythema), Other (right foot: distal toes appear black, no open wounds) Pulses: Left Dorsalis Pedis: Normal, Right Dorsalis Pedis: Normal Neurological/Psych: Oriented x3, Normal Speech, Other (No focal deficits) ED Course And Treatment - Laboratory Results Result Diagrams: 02/17/18 13:15 02/17/18 13:15 O2 Sat by Pulse Oximetry: 98 (RA) Pulse Ox Interpretation: Normal Progress Note: Blood work ordered and reviewed. CT Angio study of the right lower extremity per request of Dr. Hook. Administered IV vancomycin. Disposition - Disposition - Scribe Statement The provider has reviewed the documentation as recorded by the Marium Leon Provider Attestation: All medical record entries made by the Marium were at my direction and personally dictated by me. I have reviewed the chart and agree that the record accurately reflects my personal performance of the history, physical exam, medical decision making, and the department course for this patient. I have also personally directed, reviewed, and agree with the discharge instructions and disposition.
--- NOTE | 2018-02-17 20:33 | CP.PCM.CON ---
History of Present Illness - History of Present Illness History of Present Illness: Vascular Surgery Consult Note. Dr. Hook 67yo M with PMHx of HTN, CHF, COPD, Asthma, PVD, and DM here for evaluation of right foot pain. Patient states that he has had worsening pain to the right lower extremity. He reports right lower extremity toes discoloration for the past week. He has had similar complaints in the past which resolved without any intervention. CT Angio performed with evidence of right tibial disease. Vascular surgery consult was obtained for management. Patient denies any fevers, chills. Denies any trauma. Denies any N/V/D. No abd pain. No drainage or ulcers. PMD: Dr. Shahid PMHx: HTN, CHF, COPD, Asthma, PVD, DM PSHx: Coronary Stent Family Hx: Non-contributory Allergy: ASA, PCNs Review of Systems - Review of Systems All systems: reviewed and no additional remarkable complaints except - Constitutional Constitutional: absent: Chills, Fever - EENT Eyes: absent: Change in Vision Nose/Mouth/Throat: absent: Epistaxis, Nasal Congestion - Cardiovascular Cardiovascular: absent: Chest Pain - Respiratory Respiratory: absent: Cough, Dyspnea - Gastrointestinal Gastrointestinal: absent: Abdominal Pain, Nausea, Vomiting - Musculoskeletal Additional comments: right leg pain - Integumentary Additional comments: right foot/toes discoloration - Neurological Neurological: absent: Headaches Past Patient History - Infectious Disease Hx of Infectious Diseases: None - Past Medical History & Family History Past Medical History?: Yes Past Family History: Reviewed and not pertinent - Past Social History Smoking Status: Never Smoked Alcohol: None Drugs: Denies - CARDIAC Hx Congestive Heart Failure: Yes Hx Hypertension: Yes - PULMONARY Hx Asthma: Yes Hx Chronic Obstructive Pulmonary Disease (COPD): Yes (asthma) - HEENT Hx Deafness: (Hard of hearing, loss hearing aids) - ENDOCRINE/METABOLIC Hx Diabetes Mellitus Type 2: Yes - INTEGUMENTARY Hx Cellulitis: Yes - MUSCULOSKELETAL/RHEUMATOLOGICAL Hx Falls: Yes - GENITOURINARY/GYNECOLOGICAL Hx Incontinence: Yes - PSYCHIATRIC Hx Anxiety: Yes Hx Substance Use: No - SURGICAL HISTORY Hx Coronary Stent: Yes - ANESTHESIA Hx Anesthesia: Yes Hx Anesthesia Reactions: No Meds Allergies/Adverse Reactions: Allergies Allergy/AdvReac Type Severity Reaction Status Date / Time aspirin Allergy Mild VOMITING Verified 02/17/18 11:58 Penicillins Allergy Mild SWELLING Verified 02/17/18 11:58 Physical Exam - Constitutional Appears: Non-toxic, No Acute Distress - Head Exam Head Exam: ATRAUMATIC, NORMAL INSPECTION, NORMOCEPHALIC - Eye Exam Eye Exam: EOMI, Normal appearance. absent: Scleral icterus - ENT Exam ENT Exam: Mucous Membranes Moist - Respiratory Exam Respiratory Exam: NORMAL BREATHING PATTERN. absent: Accessory Muscle Use, Respiratory Distress - Cardiovascular Exam Cardiovascular Exam: RRR. absent: JVD - GI/Abdominal Exam GI & Abdominal Exam: Soft. absent: Distended, Firm, Guarding, Rebound, Rigid, Tenderness - Extremities Exam Additional comments: Right lower extremity with right toes discoloration, dark gangrenous skin. No active drainage noted. - Neurological Exam Neurological exam: Alert, Oriented x3 - Skin Skin Exam: Warm Results - Vital Signs Recent Vital Signs: Last Vital Signs Temp 98 F 02/17/18 20:20 Pulse 87 02/17/18 20:20 Resp 18 02/17/18 20:20 BP 148/73 02/17/18 20:20 Pulse Ox 97 02/17/18 20:20 - Labs Result Diagrams: 02/17/18 13:15 02/17/18 13:15 Labs: Laboratory Results - last 24 hr 02/17/18 02/17/18 13:15 13:15 WBC 5.4 RBC 4.68 Hgb 14.7 Hct 43.3 MCV 92.6 MCH 31.4 H MCHC 33.9 RDW 12.9 Plt Count 294 D MPV 9.7 Neut % (Auto) 68.0 Lymph % (Auto) 20.5 [place] % (Auto) 9.7 Eos % (Auto) 1.1 Baso % (Auto) 0.7 Neut # (Auto) 3.7 Lymph # (Auto) 1.1 [place] # (Auto) 0.5 Eos # (Auto) 0.1 Baso # (Auto) 0.0 Sodium 135 Potassium 4.4 Chloride 99 Carbon Dioxide 26 Anion Gap 15 BUN 15 Creatinine 0.6 L Est GFR ( Amer) > 60 Est GFR (Non-Af Amer) > 60 Random Glucose 181 H Calcium 9.5 Total Bilirubin 0.3 AST 94 H D ALT 98 H D Alkaline Phosphatase 81 Total Protein 7.7 Albumin 3.8 Globulin 3.9 Albumin/Globulin Ratio 1.0 Assessment & Plan - Assessment and Plan (Free Text) Assessment: 67yo M with likely right tibial disease. - CT angio noted Plan: - NPO past midnight - f/u AM labs - Plan for OR on 02/18/18. Selective angio with possible intervention. - Medical maximization as per Primary team Further recs as per Dr. Monster Zambrano PGY2 surgery
[2018-02-17] MEDS ORDERED: Ergocalciferol 50,000 Intl Units Cap PO SCH (23:45)
--- NOTE | 2018-02-17 23:51 | CP.PCM.HP ---
Past Patient History - Infectious Disease Hx of Infectious Diseases: None - Past Medical History & Family History Past Medical History?: Yes Past Family History: Reviewed and not pertinent - Past Social History Smoking Status: Never Smoked - CARDIAC Hx Congestive Heart Failure: Yes Hx Hypertension: Yes - PULMONARY Hx Asthma: Yes Hx Chronic Obstructive Pulmonary Disease (COPD): Yes (asthma) - HEENT Hx Deafness: (Hard of hearing, loss hearing aids) - ENDOCRINE/METABOLIC Hx Diabetes Mellitus Type 2: Yes - INTEGUMENTARY Hx Cellulitis: Yes - MUSCULOSKELETAL/RHEUMATOLOGICAL Hx Falls: Yes - GENITOURINARY/GYNECOLOGICAL Hx Incontinence: Yes - PSYCHIATRIC Hx Substance Use: No - SURGICAL HISTORY Hx Coronary Stent: Yes - ANESTHESIA Hx Anesthesia: Yes Hx Anesthesia Reactions: No Meds Allergies/Adverse Reactions: Allergies Allergy/AdvReac Type Severity Reaction Status Date / Time aspirin Allergy Mild VOMITING Verified 02/17/18 11:58 Penicillins Allergy Mild SWELLING Verified 02/17/18 11:58 Results - Vital Signs Recent Vital Signs: Last Vital Signs Temp 98 F 02/17/18 20:20 Pulse 87 02/17/18 20:20 Resp 18 02/17/18 20:20 BP 148/73 02/17/18 20:20 Pulse Ox 97 02/17/18 20:20 - Labs Result Diagrams: 02/17/18 13:15 02/17/18 13:15 Labs: Laboratory Results - last 24 hr 02/17/18 02/17/18 02/17/18 13:15 13:15 21:14 WBC 5.4 RBC 4.68 Hgb 14.7 Hct 43.3 MCV 92.6 MCH 31.4 H MCHC 33.9 RDW 12.9 Plt Count 294 D MPV 9.7 Neut % (Auto) 68.0 Lymph % (Auto) 20.5 [place] % (Auto) 9.7 Eos % (Auto) 1.1 Baso % (Auto) 0.7 Neut # (Auto) 3.7 Lymph # (Auto) 1.1 [place] # (Auto) 0.5 Eos # (Auto) 0.1 Baso # (Auto) 0.0 Sodium 135 Potassium 4.4 Chloride 99 Carbon Dioxide 26 Anion Gap 15 BUN 15 Creatinine 0.6 L Est GFR ( Amer) > 60 Est GFR (Non-Af Amer) > 60 POC Glucose (mg/dL) 216 H Random Glucose 181 H Calcium 9.5 Total Bilirubin 0.3 AST 94 H D ALT 98 H D Alkaline Phosphatase 81 Total Protein 7.7 Albumin 3.8 Globulin 3.9 Albumin/Globulin Ratio 1.0
[2018-02-18 06:32] LABS: BASO % 0.7 % (0.0-2.0); EOS # 0.1 K/uL (0.0-0.7); EOS % 1.2 % (0.0-4.0); HEMOGLOBIN 14.2 g/dL (12.0-18.0); LYMPH # 1.4 K/uL (1.0-4.3); LYMPH % 23.7 % (20.0-40.0); MEAN CELL VOLUME 92.1 fL (80.0-94.0); MEAN CORPUSCULAR HEMOGLOBIN 31.3 pg (27.0-31.0); MEAN PLATELET VOLUME 9.8 fL (7.2-11.7); MONO # 0.4 K/uL (0.0-0.8); MONO % 6.8 % (0.0-10.0); NEUT % 67.6 % (50.0-75.0); NRBC % 0.1 % (0.0-2.0); RBC 4.54 Mil/uL (4.40-5.90); RED CELL DISTRIBUTION WIDTH 12.9 % (11.5-14.5); WHITE BLOOD COUNT 5.9 K/uL (4.8-10.8)
[2018-02-18 06:41] LABS: BLOOD UREA NITROGEN 18 mg/dL (9-20); CALCIUM 9.3 mg/dl (8.6-10.4); GFR NON-AFRICAN AMERICAN > 60
[2018-02-18 06:48] LABS: INR 1.1; PROTHROMBIN TIME 12.1 SECONDS (9.7-12.2)
[2018-02-18] MEDS: Saccharomyces Boulardi 250 mg Cap PO SCH (09:26)
[2018-02-18] MEDS: Enoxaparin 40 mg Syringe SC SCH (09:27)
--- NOTE | 2018-02-18 11:59 | CT ---
Date of service: 02/17/2018 PROCEDURE: CT Angiography Abdomen, Pelvis and Lower Extremity with Contrast HISTORY: RIGHT LE R/O ARTERIAL THROMBUS COMPARISON: None available. TECHNIQUE: Technique: CT angiography of the abdomen, pelvis and bilateral lower extremities performed in the arterial phase of enhancement. Coronal and sagittal reformats, and well as rotating MIP images of the vessels generated at the workstation. Intravenous contrast dose: 100 cc of visipaque 320 Radiation dose: Total exam DLP = 1310.56 mGy-cm. This CT exam was performed using one or more of the following dose reduction techniques: Automated exposure control, adjustment of the mA and/or kV according to patient size, and/or use of iterative reconstruction technique. FINDINGS: CT ANGIOGRAPHY: ABDOMINAL AORTA:: MAJOR AORTIC BRANCHES: Celiac [place]: Unremarkable. Superior mesenteric artery: Unremarkable. Inferior mesenteric artery: Unremarkable. Renal arteries: Unremarkable. PELVIC ARTERIES: Right Common Iliac: Unremarkable. Right External Iliac: Unremarkable. Right Internal Iliac: Unremarkable. Left Common Iliac: Unremarkable. Left External Iliac: Unremarkable. Left Internal Iliac: Unremarkable. RIGHT LOWER EXTREMITY ARTERIES: Right Common Femoral: Unremarkable. Right Superficial Femoral: Unremarkable. Right Profunda Femoris: Unremarkable. Right Popliteal:Unremarkable. Right Anterior Tibial: Patent with multiple areas of moderate stenosis throughout the anterior tibial artery. Right Tibioperoneal Trunk: Unremarkable. Right Posterior Tibial: Patent. Areas of mild stenosis throughout the posterior tibial artery. Right Peroneal: In the proximal segment Right dorsalis pedis : Unremarkable. LEFT LOWER EXTREMITY ARTERIES: Left Common Femoral: Unremarkable. Left Superficial Femoral: Unremarkable. Left Profunda Femoris: Unremarkable. Left Popliteal: Unremarkable. Left Anterior Tibial: Patent. There are multiple areas of moderate stenosis throughout the anterior tibial artery. Left Tibioperoneal Trunk: Unremarkable. Left Posterior Tibial: Occluded the origin. Left Peroneal: Occluded proximal segment with no reconstitution. Left Dorsalis pedis: Unremarkable. NON-ANGIOGRAPHIC ASPECT OF THE EXAM: LOWER THORAX: Unremarkable. LIVER: Unremarkable. No gross lesion or ductal dilatation. GALLBLADDER AND BILE DUCTS: Unremarkable. PANCREAS: Unremarkable. No gross lesion or ductal dilatation. SPLEEN: Unremarkable. ADRENALS: Unremarkable. No mass. KIDNEYS AND URETERS: Unremarkable. No hydronephrosis. No solid mass. STOMACH AND BOWEL: Unremarkable. No obstruction. No gross mural thickening. APPENDIX: Normal appendix. PERITONEUM: Unremarkable. No free fluid. No free air. LYMPH NODES: Unremarkable. No enlarged lymph nodes. BLADDER: Unremarkable. REPRODUCTIVE: Unremarkable. BONES: No acute fracture. OTHER FINDINGS: None. IMPRESSION: CT ANGIOGRAM ABDOMEN/PELVIS: 1. Essentially unremarkable CT angiogram of the abdomen pelvis. LEFT LOWER EXTREMITY CT ANGIOGRAM: 1. Artery, profunda femoral artery superficial femoral artery are unremarkable. 2. 2. Popliteal artery is normal. 3. Runoff shows a patent anterior tibial artery multiple areas of moderate stenosis throughout. Both the peroneal artery and posterior tibial artery occluded. RIGHT LOWER EXTREMITY CT ANGIOGRAM: 1. The common femoral artery, superficial femoral artery, profunda femoral artery popliteal artery normal. 2. Runoff shows a patent anterior tibial artery posterior tibial artery. The peroneal artery is occluded proximal segment
[2018-02-18] MEDS ORDERED: Midazolam 2 MG/2 ML VIAL ONE (14:32)
[2018-02-18] MEDS ORDERED: Propofol 10 mg/ml Inj (20 ML) ONE (14:32)
[2018-02-18] MEDS ORDERED: Lidocaine 2% MPF (5 ml) Inj ONE (14:42)
[2018-02-18] MEDS ORDERED: Iodixanol 320 MG/ML 100 ML BOTTLE IV ONE ×2 (14:43→16:47)
[2018-02-18] MEDS ORDERED: Iodixanol 320 MG/ML 200 ML BOTTLE IV ONE (14:43)
[2018-02-18] MEDS ORDERED: Nitroglycerin 50mg in D5W 50 MG/250 ML BOTTLE IV ONE (15:58)
--- NOTE | 2018-02-18 17:13 | PCM.SURG1 ---
Surgeon's Initial Post Op Note - Surgeon's Notes Surgeon: [email or web address] Classified Ad Clerk: 0 Type of Anesthesia: IV Sedation Anesthesia Administered By: daina Pre-Operative Diagnosis: gangrene of right foot Operative Findings: diffuse tibial disease. palpable pulse DP at completion. mynx left groin Post-Operative Diagnosis: same Operation Performed: aortofemoral angigram via left groin. selective catherization right femoral artery. pathway atherectomy PT and AT. 3mm balloon angioplasty of both. mynx left Specimen/Specimens Removed: 0 Estimated Blood Loss: EBL {In ML}: 25 Blood Products Given: N/A Drains Used: No Drains Post-Op Condition: Good Date of Surgery/Procedure: 02/18/18 Time of Surgery/Procedure: 17:14
[2018-02-18] MEDS: Dextrose 5%/0.45% NS 1,000 ML IV SCH (18:00)
--- NOTE | 2018-02-18 21:48 | CP.PCM.CON ---
History of Present Illness - History of Present Illness History of Present Illness: CC: cardiac evaluation 67yo M with PMHx of HTN, CHF, COPD, Asthma, PVD, and DM here for evaluation of right foot pain. Patient states that he has had worsening pain to the right lower extremity. He reports right lower extremity toes discoloration for the past week. He has had similar complaints in the past which resolved without any intervention. CT Angio performed with evidence of right tibial disease. Patient denies any fevers, chills. Denies any trauma. Denies any N/V/D. No abd pain. No drainage or ulcers. PMD: Dr. Shahid PMHx: HTN, CHF, COPD, Asthma, PVD, DM PSHx: Coronary Stent Family Hx: Non-contributory Allergy: ASA, PCNs Review of Systems - Review of Systems All systems: reviewed and no additional remarkable complaints except - Constitutional Constitutional: absent: Chills, Fever - EENT Eyes: absent: Change in Vision Nose/Mouth/Throat: absent: Epistaxis, Nasal Congestion - Cardiovascular Cardiovascular: absent: Chest Pain - Respiratory Respiratory: absent: Cough, Dyspnea - Gastrointestinal Gastrointestinal: absent: Abdominal Pain, Nausea, Vomiting - Musculoskeletal Additional comments: right leg pain - Integumentary Additional comments: right foot/toes discoloration - Neurological Neurological: absent: Headaches Meds Allergies/Adverse Reactions: Allergies Allergy/AdvReac Type Severity Reaction Status Date / Time aspirin Allergy Mild VOMITING Verified 02/17/18 11:58 Penicillins Allergy Mild SWELLING Verified 121818 11:58 Physical Exam - Constitutional Appears: Non-toxic, No Acute Distress - Head Exam Head Exam: ATRAUMATIC, NORMAL INSPECTION, NORMOCEPHALIC - Eye Exam Eye Exam: EOMI, Normal appearance. absent: Scleral icterus - ENT Exam ENT Exam: Mucous Membranes Moist - Respiratory Exam Respiratory Exam: NORMAL BREATHING PATTERN. absent: Accessory Muscle Use, Respiratory Distress - Cardiovascular Exam Cardiovascular Exam: RRR. absent: JVD - GI/Abdominal Exam GI & Abdominal Exam: Soft. absent: Distended, Firm, Guarding, Rebound, Rigid, Tenderness - Extremities Exam Additional comments: Right lower extremity with right toes discoloration, dark gangrenous skin. No active drainage noted. - Neurological Exam Neurological exam: Alert, Oriented x3 - Skin Skin Exam: Warm Results - Vital Signs Recent Vital Signs: Last Vital Signs Temp 98 F 02/17/18 20:20 Pulse 87 02/17/18 20:20 Resp 18 02/17/18 20:20 BP 148/73 02/17/18 20:20 Pulse Ox 97 02/17/18 20:20 - Labs Result Diagrams: 02/17/18 13:15 02/17/18 13:15 Labs: Laboratory Results - last 24 hr 02/17/18 02/17/18 13:15 13:15 WBC 5.4 RBC 4.68 Hgb 14.7 Hct 43.3 MCV 92.6 MCH 31.4 H MCHC 33.9 RDW 12.9 Plt Count 294 D MPV 9.7 Neut % (Auto) 68.0 Lymph % (Auto) 20.5 Hill % (Auto) 9.7 Eos % (Auto) 1.1 Baso % (Auto) 0.7 Neut # (Auto) 3.7 Lymph # (Auto) 1.1 Hill # (Auto) 0.5 Eos # (Auto) 0.1 Baso # (Auto) 0.0 Sodium 135 Potassium 4.4 Chloride 99 Carbon Dioxide 26 Anion Gap 15 BUN 15 Creatinine 0.6 L Est GFR ( Amer) > 60 Est GFR (Non-Af Amer) > 60 Random Glucose 181 H Calcium 9.5 Total Bilirubin 0.3 AST 94 H D ALT 98 H D Alkaline Phosphatase 81 Total Protein 7.7 Albumin 3.8 Globulin 3.9 Albumin/Globulin Ratio 1.0 Assessment & Plan - Assessment and Plan (Free Text) Assessment: 67 M Hx of DM2, HTN, Hyperlipidemia, PAD CAD hx of stents Stress test and ECHO prior to discharge Past Patient History - Infectious Disease Hx of Infectious Diseases: None - Past Medical History & Family History Past Medical History?: Yes Past Family History: Reviewed and not pertinent - Past Social History Smoking Status: Never Smoked - CARDIAC Hx Congestive Heart Failure: Yes Hx Hypertension: Yes - PULMONARY Hx Chronic Obstructive Pulmonary Disease (COPD): Yes (asthma) - HEENT Hx Deafness: (Hard of hearing, loss hearing aids) - ENDOCRINE/METABOLIC Hx Diabetes Mellitus Type 2: Yes - INTEGUMENTARY Hx Cellulitis: Yes - MUSCULOSKELETAL/RHEUMATOLOGICAL Hx Falls: Yes - GENITOURINARY/GYNECOLOGICAL Hx Incontinence: Yes - PSYCHIATRIC Hx Substance Use: No - SURGICAL HISTORY Hx Coronary Stent: Yes - ANESTHESIA Hx Anesthesia: Yes Hx Anesthesia Reactions: No Meds Allergies/Adverse Reactions: Allergies Allergy/AdvReac Type Severity Reaction Status Date / Time aspirin Allergy Mild VOMITING Verified 02/17/18 11:58 Penicillins Allergy Mild SWELLING Verified 02/17/18 11:58 - Medications Medications: Current Medications Clopidogrel Bisulfate (Plavix) 75 mg PO DAILY [facility] Last Admin: 02/18/18 09:27 Dose: Not Given Enoxaparin Sodium (Lovenox) 40 mg SC DAILY [facility] Last Admin: 02/18/18 09:27 Dose: Not Given Ergocalciferol (Drisdol 50,000 Intl Units Cap) 1 cap PO Q7D [facility] Last Admin: 02/18/18 01:01 Dose: 1 cap Famotidine (Pepcid) 20 mg PO DAILY [facility] Last Admin: 02/18/18 09:27 Dose: Not Given Gabapentin (Neurontin) 300 mg PO BID [facility] Last Admin: 02/18/18 18:00 Dose: Not Given Cefazolin Sodium 500 mg/ (Sodium Chloride) 50 mls @ 100 mls/hr IVPB Q8H [facility]; Protocol Last Admin: 02/18/18 15:45 Dose: Not Given Dextrose/Sodium Chloride (Dextrose 5%/0.45% Ns 1000 Ml) 1,000 mls @ 100 mls/hr IV .Q10H [facility] Last Admin: 02/18/18 18:00 Dose: 100 mls/hr Metformin HCl (Glucophage) 500 mg PO BID [facility] Last Admin: 02/18/18 18:00 Dose: Not Given Rosuvastatin Calcium (Crestor) 10 mg PO HS [facility] Last Admin: 02/18/18 21:08 Dose: 10 mg Saccharomyces Boulardii (Florastor) 250 mg PO DAILY [facility] Last Admin: 02/18/18 09:26 Dose: Not Given Results - Vital Signs Recent Vital Signs: Last Vital Signs Temp 97.3 F L 02/18/18 18:53 Pulse 73 02/18/18 18:53 Resp 18 02/18/18 18:53 BP 130/71 02/18/18 18:53 Pulse Ox 96 02/18/18 18:53 - Labs Result Diagrams: 02/18/18 06:20 02/18/18 06:20 Labs: Laboratory Results - last 24 hr 02/17/18 02/18/18 02/18/18 21:14 06:20 06:20 WBC 5.9 RBC 4.54 Hgb 14.2 Hct 41.8 MCV 92.1 MCH 31.3 H MCHC 34.0 RDW 12.9 Plt Count 309 MPV 9.8 Neut % (Auto) 67.6 Lymph % (Auto) 23.7 Hill % (Auto) 6.8 Eos % (Auto) 1.2 Baso % (Auto) 0.7 Neut # (Auto) 4.0 Lymph # (Auto) 1.4 Hill # (Auto) 0.4 Eos # (Auto) 0.1 Baso # (Auto) 0.0 PT 12.1 INR 1.1 APTT 33 Sodium Potassium Chloride Carbon Dioxide Anion Gap BUN Creatinine Est GFR ( Amer) Est GFR (Non-Af Amer) POC Glucose (mg/dL) 216 H Random Glucose Calcium Phosphorus Magnesium 02/18/18 02/18/18 02/18/18 06:20 07:12 11:07 WBC RBC Hgb Hct MCV MCH MCHC RDW Plt Count MPV Neut % (Auto) Lymph % (Auto) Hill % (Auto) Eos % (Auto) Baso % (Auto) Neut # (Auto) Lymph # (Auto) Hill # (Auto) Eos # (Auto) Baso # (Auto) PT INR APTT Sodium 137 Potassium 4.9 Chloride 99 Carbon Dioxide 32 H Anion Gap 11 BUN 18 Creatinine 0.8 Est GFR ( Amer) > 60 Est GFR (Non-Af Amer) > 60 POC Glucose (mg/dL) 144 H 142 H Random Glucose 157 H Calcium 9.3 Phosphorus 4.2 Magnesium 2.0 02/18/18 02/18/18 02/18/18 14:06 18:24 20:56 WBC RBC Hgb Hct MCV MCH MCHC RDW Plt Count MPV Neut % (Auto) Lymph % (Auto) Hill % (Auto) Eos % (Auto) Baso % (Auto) Neut # (Auto) Lymph # (Auto) Hill # (Auto) Eos # (Auto) Baso # (Auto) PT INR APTT Sodium Potassium Chloride Carbon Dioxide Anion Gap BUN Creatinine Est GFR ( Amer) Est GFR (Non-Af Amer) POC Glucose (mg/dL) 115 H 127 H 212 H Random Glucose Calcium Phosphorus Magnesium
[2018-02-19 00:16] VITALS: RESP 20
--- NOTE | 2018-02-19 02:48 | PN ---
DATE: 02/18/2018 SUBJECTIVE: The patient was seen by Vascular, and the patient underwent intervention, and the patient has improved blood flow in the feet. He still has pain in the foot. He denies any fever or chills. He denies any shortness of breath, chest pain, or palpitation. PHYSICAL EXAMINATION: GENERAL: He is awake, alert, and he just came back from OR. VITAL SIGNS: Blood pressure is 148/73, pulse 67, respiratory rate 18, temperature 98. LUNGS: Clear. CARDIOVASCULAR SYSTEM: S1, S2, plus S3 positive. ABDOMEN: Soft. EXTREMITIES: Right foot, all the toes are gangrenous. ASSESSMENT: 1. Peripheral arterial disease with gangrene, right foot. 2. Type 2 diabetes. 3. Hypertension. 4. Hyperlipidemia. LABORATORY DATA: WBC 5.9, hemoglobin 14.2, hematocrit 41.8, platelets . Sodium 137, potassium 4.9, chloride 99, bicarb 32, BUN 18, creatinine 0.8. PLAN: Antibiotics. Postop, monitor the patient. Lincoln Shahid MD
[2018-02-19] MEDS: Dextrose 5%/0.45% NS 1,000 ML IV SCH ×2 (04:30→15:19)
--- NOTE | 2018-02-19 05:52 | VAS ---
DATE: 02/18/2018 PREOPERATIVE DIAGNOSIS: Gangrene, right foot. POSTOPERATIVE DIAGNOSIS: Gangrene, right foot. PROCEDURE CARRIED OUT: 1. Aortofemoral angiogram via left groin with selective catheterization of right femoral artery. 2. Pathway atherectomy of the right posterior tibial and anterior tibial artery. 3. Balloon angioplasty using a 2.5 and a 3-mm balloon of the posterior tibial and anterior tibial artery. 4. Mynx closure of left groin. SURGEON: Isaiah Hook Jr., MD DROP FORGE OPERATOR: None. ANESTHESIOLOGIST: Andrea Huynh MD INDICATIONS: The patient is a 67-year-old male with gangrene in the right foot of all five toes. OPERATIVE FINDINGS: The aorta and renal arteries were free of significant occlusive disease. Both common iliac, external iliac, and internal iliac arteries widely patent. Common femoral, profunda femoris, superficial femoral arteries widely patent. On the left side, the trifurcation was diseased but detailed pictures were not taken below this level. There was diffuse tibial disease. On the right side, the anterior tibial was open proximally, the posterior tibial proximally to the peroneal, all three vessels out in the mid course. The primary vessel in the foot was the posterior tibial and the anterior tibial. After completion of the diagnostic arteriogram, a stiff-angled guidewire was advanced over the aortic bifurcation and a 7-Syriac sheath positioned in the distal portion of the femoral artery. Using roadmapping techniques, the posterior tibial and the anterior tibial arteries sequentially crossed after the administration of heparin. A pathway atherectomy using a 1.8 device was carried out, although we could not go all the way down on the anterior tibial. After we had completed this, we then used a balloon, 2.5 and 3 mm balloons on this with excellent results and restitution of the dorsalis pedis pulse on the right side. We then used the Mynx closure device in the groin. In addition, we took numerous films in which one of the films, there appeared to be some extravasation of the left external iliac artery. we confirmed this. There was no evidence of any leak or extravasation at this point and there was no reason to have this, but it is just a finding that we saw on the x-ray that was concerning for us. After closure of the Mynx, there was excellent flow to the left foot. The operation carried out, aortofemoral angiogram via left groin with selective catheterization of right femoral artery. Pathway atherectomy and balloon angioplasty of the right anterior tibial and posterior tibial arteries. Isaiah Hook Jr., MD MTDD
--- NOTE | 2018-02-19 06:45 | HP ---
CHIEF COMPLAINT: Bilateral feet pain, difficulty walking. HISTORY OF PRESENT ILLNESS: This is a 67-year-old male, well known to me with history of chronic heavy smoker, coronary artery disease, status post angioplasty multiple times, now on medical management due to reocclusion, hypertension, hyperlipidemia, COPD, and he came in because the patient was evaluated by me in the longterm and MUNIR index and arterial Doppler were ordered. The patient was found to have gangrene of the right toe, and the patient has this black discoloration for almost a week. The patient has history of on and off symptoms which would resolve without any treatment. He is on aspirin, statin, lipid-lowering therapy but at this time it did not get better. He had difficulty walking, pain. His extremities were cold. He feels fever, chills, rigors, body aches. The patient is a poor historian. No further details obtainable. CURRENT MEDICATIONS: He is currently taking metformin, Pepcid, vitamin D2, Bactrim, Florastor, Crestor, Neurontin, Plavix, bacitracin. SOCIAL HISTORY: He is an ex-smoker, ex-[employer] user. PAST MEDICAL HISTORY: Diabetes, hypertension, hyperlipidemia, coronary artery disease, and peripheral arterial disease. PHYSICAL EXAMINATION: GENERAL: Elderly male, who is in distress with pain in the foot. VITAL SIGNS: Blood pressure 127/76, pulse 79, respiratory rate 18, temperature 98.2. SKIN: Senile turgor. No bruits. No purpura. No petechiae. No ecchymosis. HEENT: Atraumatic and normocephalic. Positive pallor. Negative jaundice. Extraocular movements are intact. NECK: Supple. No JVD. No lymph nodes. No thyromegaly. No carotid bruits. CHEST WALL: Bilateral symmetrical expansion. LUNGS: Bilaterally inspiratory . No rales. No rhonchi. CVS: S1 and S2, plus S3 positive. ABDOMEN: Soft and nontender. Bowel sounds are positive. RECTAL: Enlarged prostate. EXTREMITIES: No clubbing, cyanosis, or edema. Right foot, all the 5 toes are gangrenous up to the middle of the shaft of each toe with excellent dorsalis pedis and posterior tibial artery pulses in both feet with feeble bilateral popliteal artery with normal femoral artery pulsation. CENTRAL NERVOUS SYSTEM: Awake, alert, and oriented x3. Cranial nerves II through XII are normal. Power 5/5 x4. Plantars are downgoing. ASSESSMENT: 1. Peripheral arterial disease, with gangrene of right thigh to the right foot. 2. Type 2 diabetes. 3. Hypertension. 4. Hyperlipidemia. 5. Coronary artery disease. PLAN: Admit. Vascular consult. Lincoln Shahid MD
[2018-02-19 07:27] LABS: HEMOGLOBIN 13.9 g/dL (12.0-18.0); MEAN CELL VOLUME 91.6 fL (80.0-94.0); MEAN CORPUSCULAR HEMOGLOBIN 31.8 pg (27.0-31.0); MEAN CORPUSCULAR HGB CONC 34.7 g/dL (33.0-37.0); MEAN PLATELET VOLUME 9.6 fL (7.2-11.7); RBC 4.38 Mil/uL (4.40-5.90); RED CELL DISTRIBUTION WIDTH 13.1 % (11.5-14.5)
[2018-02-19 07:48] LABS: ALB/GLOB RATIO 0.9 (1.0-2.1); ALBUMIN 3.2 g/dL (3.5-5.0); ALT/SGPT 76 U/L (21-72); AST/SGOT 57 U/L (17-59); BLOOD UREA NITROGEN 13 mg/dL (9-20); CALCIUM 8.3 mg/dl (8.6-10.4); GFR NON-AFRICAN AMERICAN > 60
[2018-02-19] MEDS: Saccharomyces Boulardi 250 mg Cap PO SCH (10:01)
[2018-02-19] MEDS: Enoxaparin 40 mg Syringe SC SCH (10:01)
[2018-02-19] MEDS: (Novolog) Insulin Aspart, Recombinant 100 u/ml 10 ml vial SC SCH ×2 (17:42→21:29)
[2018-02-19] MEDS ORDERED: Oxycodone/Acetaminophen 5/325 mg Tab PO PRN (19:09)
--- NOTE | 2018-02-19 20:12 | CP.PCM.PN ---
Subjective - Date & Time of Evaluation Date of Evaluation: 02/19/18 Time of Evaluation: 19:10 - Subjective Subjective: Patient seen and evaluated denies chest pain and dyspnea Review of Systems - Review of Systems All systems: reviewed and no additional remarkable complaints except - Constitutional Constitutional: absent: Chills, Fever - EENT Eyes: absent: Change in Vision Nose/Mouth/Throat: absent: Epistaxis, Nasal Congestion - Cardiovascular Cardiovascular: absent: Chest Pain - Respiratory Respiratory: absent: Cough, Dyspnea - Gastrointestinal Gastrointestinal: absent: Abdominal Pain, Nausea, Vomiting - Musculoskeletal Additional comments: right leg pain - Integumentary Additional comments: right foot/toes discoloration - Neurological Neurological: absent: Headaches Meds Allergies/Adverse Reactions: Allergies Allergy/AdvReac Type Severity Reaction Status Date / Time aspirin Allergy Mild VOMITING Verified 02/17/18 11:58 Penicillins Allergy Mild SWELLING Verified 02/17/18 11:58 Physical Exam - Constitutional Appears: Non-toxic, No Acute Distress - Head Exam Head Exam: ATRAUMATIC, NORMAL INSPECTION, NORMOCEPHALIC - Eye Exam Eye Exam: EOMI, Normal appearance. absent: Scleral icterus - ENT Exam ENT Exam: Mucous Membranes Moist - Respiratory Exam Respiratory Exam: NORMAL BREATHING PATTERN. absent: Accessory Muscle Use, Respiratory Distress - Cardiovascular Exam Cardiovascular Exam: RRR. absent: JVD - GI/Abdominal Exam GI & Abdominal Exam: Soft. absent: Distended, Firm, Guarding, Rebound, Rigid, Tenderness - Extremities Exam Additional comments: Right lower extremity with right toes discoloration, dark gangrenous skin. No active drainage noted. - Neurological Exam Neurological exam: Alert, Oriented x3 - Skin Skin Exam: Warm Assessment & Plan - Assessment and Plan (Free Text) Assessment: 67 M Hx of DM2, HTN, Hyperlipidemia, PAD CAD hx of stents Stress test and ECHO in am Objective - Vital Signs/Intake and Output Vital Signs (last 24 hours): Temp Pulse Resp BP Pulse Ox 97.5 F L 66 20 118/64 96 02/19/18 15:53 02/19/18 15:53 02/19/18 15:53 02/19/18 15:53 02/19/18 15:53 Intake and Output: 02/19/18 02/20/18 18:59 06:59 Intake Total 1350 Output Total 800 Balance 550 - Medications Medications: Current Medications Clopidogrel Bisulfate (Plavix) 75 mg PO DAILY [facility] Last Admin: 02/19/18 10:01 Dose: 75 mg Enoxaparin Sodium (Lovenox) 40 mg SC DAILY [facility] Last Admin: 02/19/18 10:01 Dose: 40 mg Ergocalciferol (Drisdol 50,000 Intl Units Cap) 1 cap PO Q7D [facility] Last Admin: 02/18/18 01:01 Dose: 1 cap Famotidine (Pepcid) 20 mg PO DAILY [facility] Last Admin: 02/19/18 10:01 Dose: 20 mg Gabapentin (Neurontin) 300 mg PO BID [facility] Last Admin: 02/19/18 17:46 Dose: 300 mg Cefazolin Sodium 500 mg/ (Sodium Chloride) 50 mls @ 100 mls/hr IVPB Q8H [facility]; Protocol Last Admin: 02/19/18 15:18 Dose: 100 mls/hr Dextrose/Sodium Chloride (Dextrose 5%/0.45% Ns 1000 Ml) 1,000 mls @ 100 mls/hr IV .Q10H [facility] Last Admin: 02/19/18 15:19 Dose: 100 mls/hr Insulin Aspart (Novolog) 0 unit SC ACHS [facility]; Protocol Last Admin: 02/19/18 17:42 Dose: 2 units Metformin HCl (Glucophage) 500 mg PO BID [facility] Last Admin: 02/19/18 17:48 Dose: 500 mg Oxycodone/Acetaminophen (Percocet 5/325 Mg Tab) 1 tab PO Q4H PRN PRN Reason: Pain, moderate (4-7) Stop: 02/22/18 19:10 Rosuvastatin Calcium (Crestor) 10 mg PO HS [facility] Last Admin: 02/18/18 21:08 Dose: 10 mg Saccharomyces Boulardii (Florastor) 250 mg PO DAILY [facility] Last Admin: 02/19/18 10:01 Dose: 250 mg - Labs Labs: 02/19/18 07:17 02/19/18 07:17 PT 12.1 SECONDS (9.7-12.2) 02/18/18 06:20 INR 1.1 02/18/18 06:20 APTT 33 SECONDS (21-34) 02/18/18 06:20
--- NOTE | 2018-02-19 20:24 | CP.PCM.PN ---
Subjective - Date & Time of Evaluation Date of Evaluation: 02/19/18 Time of Evaluation: 07:00 - Subjective Subjective: Vascular Surgery Progress Note for Dr. Hook This 67M was seen and examined this AM at bedside no acute events overnight. He denies any pain at the puncture site.Palpable distal pulses. Objective - Vital Signs/Intake and Output Vital Signs (last 24 hours): Temp Pulse Resp BP Pulse Ox 97.5 F L 66 20 118/64 96 02/19/18 15:53 02/19/18 15:53 02/19/18 15:53 02/19/18 15:53 02/19/18 15:53 Intake and Output: 02/19/18 02/20/18 18:59 06:59 Intake Total 1350 Output Total 800 Balance 550 - Medications Medications: Current Medications Clopidogrel Bisulfate (Plavix) 75 mg PO DAILY [facility] Last Admin: 02/19/18 10:01 Dose: 75 mg Enoxaparin Sodium (Lovenox) 40 mg SC DAILY [facility] Last Admin: 02/19/18 10:01 Dose: 40 mg Ergocalciferol (Drisdol 50,000 Intl Units Cap) 1 cap PO Q7D [facility] Last Admin: 02/18/18 01:01 Dose: 1 cap Famotidine (Pepcid) 20 mg PO DAILY [facility] Last Admin: 02/19/18 10:01 Dose: 20 mg Gabapentin (Neurontin) 300 mg PO BID [facility] Last Admin: 02/19/18 17:46 Dose: 300 mg Cefazolin Sodium 500 mg/ (Sodium Chloride) 50 mls @ 100 mls/hr IVPB Q8H [facility]; Protocol Last Admin: 02/19/18 15:18 Dose: 100 mls/hr Dextrose/Sodium Chloride (Dextrose 5%/0.45% Ns 1000 Ml) 1,000 mls @ 100 mls/hr IV .Q10H [facility] Last Admin: 02/19/18 15:19 Dose: 100 mls/hr Insulin Aspart (Novolog) 0 unit SC ACHS [facility]; Protocol Last Admin: 02/19/18 17:42 Dose: 2 units Metformin HCl (Glucophage) 500 mg PO BID [facility] Last Admin: 02/19/18 17:48 Dose: 500 mg Oxycodone/Acetaminophen (Percocet 5/325 Mg Tab) 1 tab PO Q4H PRN PRN Reason: Pain, moderate (4-7) Stop: 02/22/18 19:10 Rosuvastatin Calcium (Crestor) 10 mg PO HS [facility] Last Admin: 02/18/18 21:08 Dose: 10 mg Saccharomyces Boulardii (Florastor) 250 mg PO DAILY [facility] Last Admin: 02/19/18 10:01 Dose: 250 mg - Labs Labs: 02/19/18 07:17 02/19/18 07:17 PT 12.1 SECONDS (9.7-12.2) 02/18/18 06:20 INR 1.1 02/18/18 06:20 APTT 33 SECONDS (21-34) 02/18/18 06:20 - Constitutional Appears: Non-toxic, No Acute Distress - Head Exam Head Exam: ATRAUMATIC, NORMOCEPHALIC - Eye Exam Eye Exam: EOMI - ENT Exam ENT Exam: Mucous Membranes Moist - Respiratory Exam Respiratory Exam: NORMAL BREATHING PATTERN - Cardiovascular Exam Cardiovascular Exam: +S1, +S2 - GI/Abdominal Exam GI & Abdominal Exam: Soft. absent: Tenderness - Extremities Exam Additional comments: Palpable dp and pt with necrotic digits Assessment and Plan - Assessment and Plan (Free Text) Assessment: 67M with PVD POD#1 s/p angioplasty and doing well Recommend podiatry consult for distal digital disease D/W Dr. Monster Cantu PGY3
[2018-02-19] MEDS ORDERED: (Novolog) Insulin Aspart, Recombinant 100 u/ml 10 ml vial SC SCH (22:00)
[2018-02-19] MEDS: Lactated Ringer's 1,000 ML IV SCH (22:36)
[2018-02-19 22:42] LABS: HEMOGLOBIN 12.8 g/dL (12.0-18.0); MEAN CELL VOLUME 92.1 fL (80.0-94.0); MEAN CORPUSCULAR HEMOGLOBIN 31.2 pg (27.0-31.0); MEAN CORPUSCULAR HGB CONC 33.9 g/dL (33.0-37.0); RBC 4.1 Mil/uL (4.40-5.90); RED CELL DISTRIBUTION WIDTH 13.1 % (11.5-14.5)
[2018-02-19 22:59] LABS: BLOOD UREA NITROGEN 11 mg/dL (9-20); CALCIUM 8.1 mg/dl (8.6-10.4); GFR NON-AFRICAN AMERICAN > 60
--- NOTE | 2018-02-20 01:38 | PN ---
DATE: 02/19/2018 SUBJECTIVE: The patient is complaining of right-sided foot pain. He has gangrenous toes. He has fair blood flow, and his extremities are warm since revascularization. He is afebrile. His blood sugar went up due to IV fluids. I just changed his IV fluid. No fever. No chills. No nausea or vomiting. Seen by Surgery. PHYSICAL EXAMINATION: VITAL SIGNS: Blood pressure 118/64, pulse 66, respiratory rate 20, temperature 97.5. SKIN: The patient has right foot gangrene, base of the toes. Other than that, skin has poor turgor. LUNGS: Clear. Decreased air entry. ABDOMEN: Soft. ASSESSMENT: 1. Peripheral arterial disease with ischemic right foot, status post vascular intervention. 2. Type 2 diabetes. 3. Hypertension. 4. Coronary artery disease. 5. Peripheral arterial disease. PLAN: Continue Accu-Chek sliding scale. Change IV fluids. Continue statin, aspirin, Plavix. Monitor the patient. Lincoln Shahid MD
[2018-02-20] MEDS: (Novolog) Insulin Aspart, Recombinant 100 u/ml 10 ml vial SC SCH ×4 (07:32→22:09)
[2018-02-20] MEDS ORDERED: Caffeine Citrated **INJ** 20 MG/ML IV ONE (07:47)
[2018-02-20] MEDS: Saccharomyces Boulardi 250 mg Cap PO SCH ×2 (10:27→11:55)
[2018-02-20] MEDS: Enoxaparin 40 mg Syringe SC SCH ×2 (10:27→11:57)
[2018-02-20] MEDS: Lactated Ringer's 1,000 ML IV SCH ×2 (10:27→17:50)
--- NOTE | 2018-02-20 12:22 | CP.PCM.DIS ---
Provider - Provider Date of Admission: 02/17/18 17:06 Attending physician: Lincoln Shahid MD Consults: 02/17/18 17:09 Physician Consult Stat Comment: right foot gangrene, PVD Consulting Provider: Isaiah Hook Jr. Consulting Physician: Isaiah Hook Jr. Reason for Consult: vascular Additional Comments: spoken with 02/17/18 20:41 Case Management Referral Routine Comment: Physician Instructions: Reason For Exam: from [facility] Reason for Referral: Discharge Planning 02/17/18 23:48 Cardiology Consult Routine Comment: Consulting Provider: Philippe Arias Consulting Physician: Philippe Arias Reason for Consult: [facility] - Lab Results Lab Results: Most Recent Lab Values WBC 8.0 K/uL (4.8-10.8) 02/19/18 22:39 RBC 4.10 Mil/uL (4.40-5.90) L 02/19/18 22:39 Hgb 12.8 g/dL (12.0-18.0) 02/19/18 22:39 Hct 37.8 % (35.0-51.0) 02/19/18 22:39 MCV 92.1 fL (80.0-94.0) 02/19/18 22:39 MCH 31.2 pg (27.0-31.0) H 02/19/18 22:39 MCHC 33.9 g/dL (33.0-37.0) 02/19/18 22:39 RDW 13.1 % (11.5-14.5) 02/19/18 22:39 Plt Count 273 K/uL (130-400) 02/19/18 22:39 MPV 9.0 fL (7.2-11.7) 02/19/18 22:39 Neut % (Auto) 67.6 % (50.0-75.0) 02/18/18 06:20 Lymph % (Auto) 23.7 % (20.0-40.0) 02/18/18 06:20 Gem % (Auto) 6.8 % (0.0-10.0) 02/18/18 06:20 Eos % (Auto) 1.2 % (0.0-4.0) 02/18/18 06:20 Baso % (Auto) 0.7 % (0.0-2.0) 02/18/18 06:20 Neut # (Auto) 4.0 K/uL (1.8-7.0) 02/18/18 06:20 Lymph # (Auto) 1.4 K/uL (1.0-4.3) 02/18/18 06:20 Gem # (Auto) 0.4 K/uL (0.0-0.8) 02/18/18 06:20 Eos # (Auto) 0.1 K/uL (0.0-0.7) 02/18/18 06:20 Baso # (Auto) 0.0 K/uL (0.0-0.2) 02/18/18 06:20 PT 12.1 SECONDS (9.7-12.2) 02/18/18 06:20 INR 1.1 02/18/18 06:20 APTT 33 SECONDS (21-34) 02/18/18 06:20 Sodium 135 mmol/L (132-148) 02/19/18 22:39 Potassium 4.2 mmol/L (3.6-5.2) 02/19/18 22:39 Chloride 103 mmol/L (98-107) 02/19/18 22:39 Carbon Dioxide 24 mmol/L (22-30) 02/19/18 22:39 Anion Gap 12 (10-20) 02/19/18 22:39 BUN 11 mg/dL (9-20) 02/19/18 22:39 Creatinine 0.8 mg/dL (0.8-1.5) 02/19/18 22:39 Est GFR ( Amer) > 60 02/19/18 22:39 Est GFR (Non-Af Amer) > 60 02/19/18 22:39 POC Glucose (mg/dL) 189 mg/dL (65-110) H 02/20/18 11:22 Random Glucose 178 mg/dL (75-110) H 02/19/18 22:39 Calcium 8.1 mg/dl (8.6-10.4) L 02/19/18 22:39 Phosphorus 4.2 mg/dL (2.5-4.5) 02/18/18 06:20 Magnesium 2.0 mg/dL (1.6-2.3) 02/18/18 06:20 Total Bilirubin 0.4 mg/dL (0.2-1.3) 02/19/18 07:17 AST 57 U/L (17-59) 02/19/18 07:17 ALT 76 U/L (21-72) H D 02/19/18 07:17 Alkaline Phosphatase 75 U/L (38-126) 02/19/18 07:17 Total Protein 6.7 g/dL (6.3-8.3) 02/19/18 07:17 Albumin 3.2 g/dL (3.5-5.0) L 02/19/18 07:17 Globulin 3.4 gm/dL (2.2-3.9) 02/19/18 07:17 Albumin/Globulin Ratio 0.9 (1.0-2.1) L 02/19/18 07:17 Discharge Exam - Head Exam Head Exam: ATRAUMATIC, NORMOCEPHALIC Discharge Plan - Follow Up Plan Condition: GOOD Disposition: HOME/ ROUTINE
[2018-02-20 16:01] VITALS: O2SAT 97
--- NOTE | 2018-02-20 22:24 | CP.PCM.PN ---
Subjective - Date & Time of Evaluation Date of Evaluation: 02/20/18 Time of Evaluation: 14:05 - Subjective Subjective: Patient seen and evaluated Normal stress test and normal EF Likely cardiac risk for the foot surgery or amputation moderate Objective - Vital Signs/Intake and Output Vital Signs (last 24 hours): Temp Pulse Resp BP Pulse Ox 98.2 F 78 20 146/84 97 02/20/18 15:50 02/20/18 15:50 02/20/18 15:50 02/20/18 15:50 02/20/18 15:50 Intake and Output: 02/20/18 02/21/18 18:59 06:59 Intake Total 800 Balance 800 - Medications Medications: Current Medications Clopidogrel Bisulfate (Plavix) 75 mg PO DAILY [facility] Last Admin: 02/20/18 11:55 Dose: 75 mg Enoxaparin Sodium (Lovenox) 40 mg SC DAILY [facility] Last Admin: 02/20/18 11:57 Dose: 40 mg Ergocalciferol (Drisdol 50,000 Intl Units Cap) 1 cap PO Q7D [facility] Last Admin: 02/18/18 01:01 Dose: 1 cap Famotidine (Pepcid) 20 mg PO DAILY [facility] Last Admin: 02/20/18 11:56 Dose: 20 mg Gabapentin (Neurontin) 300 mg PO BID [facility] Last Admin: 02/20/18 17:48 Dose: 300 mg Cefazolin Sodium 500 mg/ (Sodium Chloride) 50 mls @ 100 mls/hr IVPB Q8H [facility]; Protocol Last Admin: 02/20/18 16:16 Dose: 100 mls/hr Lactated Ringer's (Lactated Ringer's) 1,000 mls @ 100 mls/hr IV .Q10H [facility] Last Admin: 02/20/18 17:50 Dose: 100 mls/hr Insulin Aspart (Novolog) 0 unit SC ACHS [facility]; Protocol Last Admin: 02/20/18 22:09 Dose: Not Given Metformin HCl (Glucophage) 500 mg PO BID [facility] Last Admin: 02/20/18 17:48 Dose: 500 mg Oxycodone/Acetaminophen (Percocet 5/325 Mg Tab) 1 tab PO Q4H PRN PRN Reason: Pain, moderate (4-7) Stop: 02/22/18 19:10 Last Admin: 02/19/18 21:18 Dose: 1 tab Rosuvastatin Calcium (Crestor) 10 mg PO HS [facility] Last Admin: 02/19/18 21:15 Dose: 10 mg Saccharomyces Boulardii (Florastor) 250 mg PO DAILY [facility] Last Admin: 02/20/18 11:55 Dose: 250 mg - Labs Labs: 02/19/18 22:39 02/19/18 22:39 PT 12.1 SECONDS (9.7-12.2) 02/18/18 06:20 INR 1.1 02/18/18 06:20 APTT 33 SECONDS (21-34) 02/18/18 06:20
--- NOTE | 2018-02-20 23:13 | CARD ---
APPROVED REPORT Date of service: 02/20/2018 Protocol: PHARMACOLOGICAL STRESS Test Type: LEXISCAN Test Indications: PRE OP PAD Medications: LIST SCAN Medical History: PRE OP PAD Target HR: 153 bpm Resting ECG: normal Resting Heart Rate: 97 bpm Resting Blood Pressure: 120/70mmHg submaximum (85%): 130 bpm TEST SUMMARY [id number]. INFUSIONDOSE 100:300.00.01.093/.0. [id number]/70.0. PROCEDURE Pharmacologic stress testing was performed using 0.4mg per 5ml of regadenoson given intravenously over 7-10 seconds. POST EXERCISE Reason for Termination: Protocol Completed Target HR: No Max HR: 93 bpm 78% of Maximum Predicted HR: 153 bpm Exercise duration: 00:30 min:sec, 0 Stage Exercise capacity: 1.0METs Max Blood Pressure: 132/70mmHg Blood Pressure response to exercise: normal resting BP - appropriate response Heart Rate response to exercise: appropriate Chest Pain: No, none Angina index: 0 Arrhythmia: No, none ST Change: No, none Deviation: 0 mm INTERPRETATION Stress EKG Conclusion: Nuclear images to follow EXAM: Myocardial Perfusion REST/STRESS Imaging Protocol The imaging protocol used to acquire images was Rest Tc-99m/stress Tc-99m 1 day Rest Spect myocardial perfusion imaging was performed in supine position 45 minutes following the injection of 13.2 mCi of Tc-99 Myoview. Gated Stress Spect was performed 45 minutes after intravenous 33 mCi Tc-99 Myoview injection. The images were gated to evaluate regional wall motion and calculate ventricular ejection fraction.Images were reconstructed using backfilter projection method in short horizontal and verticle long axis. Spect slices were generated. RESTING DATA EDV63.77lxIO6.20L/min ESV28.00mlMyocardial Wggr393.00g Av. Heart Rate93.00bpm EF56.00% STRESS DATA EDV62.86aqDC9.50L/min ESV25.00mlMyocardial Wuum070.00g EF60.00% Regional WT score at stress:2.00 Regional WM score at stress:0.00 Summed WT score at stress:27.00 Av. Heart Ecjr740.00bpmSummed WM score at stress:6.00 LV Perf. Quant 17 Seg. SSS1.00 17 Seg. SRS1.00 17 Seg. SDS0.00 Stress Defect Extent (% LAD)0.00Rest Defect Extent (% LAD)0.00Rev. Defect Extent (% LAD)0.00 Stress Defect Extent (% LCX)5.00Rest Defect Extent (% LCX)0.00Rev. Defect Extent (% LCX)0.00 Stress Defect Extent (% RCA)0.00Rest Defect Extent (% RCA)0.00Rev. Defect Extent (% RCA)0.00 Stress Defect Extent (% AJAY)0.90Rest Defect Extent (% AJAY)0.00Rev. Defect Extent (% AJAY)0.00 Other Information Quality:Good IMPRESSION Normal Myocardial Perfusion exercise stress study Left Ventricle LV Function:Left ventricle systolic function is normal. The Ejection Fraction is >55%. Conclusion 1. Normal lexiscan nuclear stress test. Normal EF
--- NOTE | 2018-02-21 03:55 | DS ---
DISCHARGE DIAGNOSES: Peripheral arterial disease with gangrene of right foot, type II diabetes, hypertension, hyperlipidemia, coronary artery disease, and congestive heart failure. HISTORY OF PRESENT ILLNESS: This is an elderly 67-year-old male, well-known to me with history of coronary artery disease, diabetes, hypertension, hyperlipidemia, and peripheral arterial disease. He came in because of ischemic right foot with gangrenous tips of the right foot. The patient underwent vascular intervention and blood flow to his right lower extremity was restored and his blood flow improved. He felt better. His pain is gone. The patient underwent a stress test, and nuclear EKG part is negative. PHYSICAL EXAMINATION: VITAL SIGNS: Blood pressure 135/79, pulse 90, respiratory rate 20, and temperature 97.9. LUNGS: Decreased air entry. Positive rhonchi. CARDIOVASCULAR: S1 and S2 regular. ABDOMEN: Soft. LABORATORY DATA: WBC 8, hemoglobin 12.8, hematocrit 37.8, and platelets 273. Sodium , potassium 4.2, chloride 103, bicarbonate 24, BUN 11, and creatinine 0.1. His glucose went down. The patient is afebrile. His circulation has been restored. The patient is being discharged with outpatient followup. CONDITION UPON DISCHARGE: Stable. Lincoln Shahid MD
[2018-02-21] MEDS: (Novolog) Insulin Aspart, Recombinant 100 u/ml 10 ml vial SC SCH ×2 (07:40→11:36)
[2018-02-21 08:10] VITALS: BP 129/74; PULSE 77; TEMP 97.6
[2018-02-21] MEDS: Saccharomyces Boulardi 250 mg Cap PO SCH (09:12)
[2018-02-21] MEDS: Enoxaparin 40 mg Syringe SC SCH (09:12)
== END 2018-02-21 12:50 | DRG 301 ==
LOC: C.ER 11:20 → C.9E 17:06 → C.3T 18:21
PROVIDERS: ADMIT Internal Medicine; ATTEND Internal Medicine
DX: E11.52 Type 2 diabetes mellitus with diabetic peripheral angiopathy with gangrene (principal); F41.9 Anxiety disorder, unspecified; I25.10 Atherosclerotic heart disease of native coronary artery without angina pectoris; I11.0 Hypertensive heart disease with heart failure; J44.9 Chronic obstructive pulmonary disease, unspecified; I50.9 Heart failure, unspecified; H91.90 Unspecified hearing loss, unspecified ear; E78.5 Hyperlipidemia, unspecified; I99.8 Other disorder of circulatory system; Z79.82 Long term (current) use of aspirin; Z87.891 Personal history of nicotine dependence; Z95.5 Presence of coronary angioplasty implant and graft

== ENCOUNTER 2018-04-29 09:32 | Day surgery (SDC) | payer MEDICARE, OTHER ==
[2018-04-24 12:36] VITALS: BMI 22.6
[2018-04-29 11:25] VITALS: BP 122/74; PULSE 80; RESP 18; TEMP 98.2; O2SAT 98
== END 2018-04-29 15:08 | disposition home or self-care (01) ==
LOC: C.SPRAD 09:32 → C.SDS 09:32
PROVIDERS: ATTEND Surgery Vascular Surgery
DX: I73.9 Peripheral vascular disease, unspecified (principal); Z53.9 Procedure and treatment not carried out, unspecified reason

== ENCOUNTER → 2018-04-30 | Day surgery (SDC) | payer MEDICARE, OTHER ==
[~2018-04-30] MED LIST: Dextrose 5%/0.45% NS 1,000 ML IV SCH; Etomidate 20 mg/10ml Inj IV ONE; Iodixanol 320 MG/ML 100 ML BOTTLE IV ONE; Iodixanol 320 MG/ML 200 ML BOTTLE IV ONE; Lidocaine 2% MPF (5 ml) Inj ONE; Midazolam 2 MG/2 ML VIAL ONE
[2018-04-30 08:26] LABS: MEAN CELL VOLUME 92.6 fL (80.0-94.0); MEAN CORPUSCULAR HGB CONC 33.5 g/dL (33.0-37.0); MEAN PLATELET VOLUME 9.9 fL (7.2-11.7); RBC 4.75 Mil/uL (4.40-5.90); RED CELL DISTRIBUTION WIDTH 13.4 % (11.5-14.5)
[2018-04-30 08:34] LABS: HEMOGLOBIN 14.8 g/dL (12.0-18.0)
[2018-04-30 08:35] LABS: INR 1.1; PROTHROMBIN TIME 11.8 SECONDS (9.7-12.2)
[2018-04-30 08:37] LABS: BLOOD UREA NITROGEN 16 mg/dL (9-20); CALCIUM 9.7 mg/dl (8.6-10.4); GFR NON-AFRICAN AMERICAN > 60
--- NOTE | 2018-04-30 10:19 | PCM.SURG1 ---
Surgeon's Initial Post Op Note - Surgeon's Notes Surgeon: renetta Caustic Liquor Maker: 0 Type of Anesthesia: IV Sedation Anesthesia Administered By: staff luis Pre-Operative Diagnosis: gangrene right foot Operative Findings: severe tibial disease. anterior tibial angioplastied open Post-Operative Diagnosis: same Operation Performed: aortofemoral angiogram via left groin with selective catherization of right femoral artery. balloon angioplasty of anterior tibial artery. perclose left groin Specimen/Specimens Removed: 0 Estimated Blood Loss: EBL {In ML}: 100 Blood Products Given: N/A Drains Used: No Drains Post-Op Condition: Good Date of Surgery/Procedure: 04/30/18 Time of Surgery/Procedure: 10:19
--- NOTE | 2018-05-01 03:04 | VAS ---
DATE: 04/30/2018 PREOPERATIVE DIAGNOSIS: Gangrene right foot. POSTOPERATIVE DIAGNOSIS: Gangrene right foot. PROCEDURE CARRIED OUT: 1. Aortofemoral angiogram via left groin with selective catheterization of right femoral artery. 2. Balloon angioplasty of anterior tibial artery. SURGEON: Isaiah Hook Jr., MD CARE ASSOCIATE: None. ANESTHESIOLOGIST: Anne-Marie Serrano CRNA PROCEDURE AND FINDINGS: The patient is a 67-year-old male with gangrene leg. Previously, in January, he underwent an anterior tibial and posterior tibial revascularization with balloon angioplasty, etc. He now has restenosed, the gangrene has not healed. OPERATIVE FINDINGS: The aorta and renal arteries were free of significant occlusive disease. Iliac arteries, common femoral arteries, profunda femoris, and superficial femoral arteries were widely patent. Detailed pictures were not taken below the level of the trifurcation, which was diseased on the left. On the right side, there was severe trifurcation disease. There was only risk of an anterior tibial. There was no posterior tibial or peroneal seen of any significance and in the distal portion of foot. The anterior tibial artery was able to be wired and then dilated with a 2 and 2.5 balloon. We did not have where he had an atherectomy. The patient was heparinized during this part of the procedure. After completion, we touched up the balloon the entire length of the anterior tibial artery with good cosmetic results. We then attempted to recannulate the posterior tibial artery, which we had opened previously and this was unsuccessful. We then removed the catheter from the groin and applied pressure and deployed a Perclose device. Blood loss was 50 mL. Final picture showed excellent results with wide open vessels. Operation carried out was aortofemoral angiogram via left groin with selective catheterization of right femoral artery and balloon angioplasty of anterior tibial artery. Isaiah Hook Jr., MD
== END | disposition home or self-care (01) ==
LOC: C.SPRAD 07:31
PROVIDERS: ATTEND Surgery Vascular Surgery
DX: I70.261 Atherosclerosis of native arteries of extremities with gangrene, right leg (principal); I25.10 Atherosclerotic heart disease of native coronary artery without angina pectoris; Z95.5 Presence of coronary angioplasty implant and graft; F17.200 Nicotine dependence, unspecified, uncomplicated; Z79.02 Long term (current) use of antithrombotics/antiplatelets
CPT/HCPCS: 36247; 36415; 37224; 75625; 75716; 75774; 76937; 80048; 82948; 85027; 85610; C1725; C1760; C1769; C1887; C1893; J1644; J2250; J3010; J7042; Q9966; Q9967

== ENCOUNTER 2018-07-30 08:46 | Day surgery (SDC) | payer MEDICARE, OTHER ==
[2018-07-30] MEDS ORDERED: Lidocaine 2% MPF (5 ml) Inj ONE (09:26)
[2018-07-30] MEDS ORDERED: Iodixanol 320 MG/ML 200 ML BOTTLE IV ONE (09:26)
[2018-07-30] MEDS ORDERED: Midazolam 2 MG/2 ML VIAL ONE ×3 (09:40→10:00)
[2018-07-30] MEDS ORDERED: Etomidate 20 mg/10ml Inj IV ONE (10:13)
[2018-07-30] MEDS ORDERED: Labetalol 5mg/ml (4ml) ONE (10:35)
[2018-07-30] MEDS ORDERED: Propofol 10 mg/ml Inj (20 ML) ONE (10:38)
--- NOTE | 2018-07-30 11:06 | PCM.SURG1 ---
Surgeon's Initial Post Op Note - Surgeon's Notes Surgeon: Isaiah Hook MD Lpn Instructor: Daisy Pope, PGY-2 Type of Anesthesia: IV Sedation Anesthesia Administered By: Dr. Medhat Forbes Pre-Operative Diagnosis: Non healing wound of right foot Operative Findings: Severe Anterior tibial disease Post-Operative Diagnosis: PVD- severe anterior tibial disease Operation Performed: Aortofemoral catherization with atherectomy and balloon dilitation Specimen/Specimens Removed: none Estimated Blood Loss: EBL {In ML}: 25 Blood Products Given: N/A Drains Used: No Drains Post-Op Condition: Good Date of Surgery/Procedure: 07/30/18 Time of Surgery/Procedure: 11:07
[2018-07-30 11:12] VITALS: BMI 24.7
[2018-07-30] MEDS ORDERED: Albuterol 0.083% Inhal Sol (2.5 mg/3 mL) UD INH STA (11:13)
--- NOTE | 2018-07-31 04:59 | VAS ---
DATE: 07/30/2018 PREOPERATIVE DIAGNOSIS: Gangrene, right foot. PROCEDURE CARRIED OUT: Aortobifemoral angiogram with selective catheterization of right femoral artery, pathway atherectomy and balloon angioplasty of the anterior tibial artery using a 2 and a 2.5 balloon and then deployment of a Perclose device in the left groin. DESCRIPTION OF PROCEDURE: Using ultrasound guidance and micropuncture technique, the left common femoral artery was punctured. Under fluoroscopic control, the guidewire was advanced at the level of the renal arteries. Subsequent to this, overlapping films were taken including oblique view in the pelvis. Limited views were taken below the knee on the right side due to the limitations with the equipment. At the end of the procedure, Perclose device was deployed on the left. FINDINGS: The aorta, renal arteries, iliac arteries, common iliac arteries, external iliac arteries, superficial femoral artery, common femoral artery, profunda femoris arteries were free of significant occlusive disease. On the right side, we are open down to the level of trifurcation. We were unable to obtain detailed pictures below this due to dye limitations. On the right side, which was the affected site, what we saw was that there were severe tibial disease. The anterior tibial artery was open, but severely . This went down to the dorsalis pedis artery. The tibial peroneal trunk was open initially and occluded soon after its origin. Distally to this, all the vessels were occluded and the posterior tibial artery was then visualized. Subsequent to the performance of the diagnostic arteriogram, a stiff-angled guidewire was advanced over the aortic bifurcation, a 7-[place]izen [place] sheath was positioned in the distal portion of the superficial femoral artery. The area was cannulated and an 0.35 subsequently exchanged for an ____0.18_ wire was placed distally. This was then flushed with heparinized saline and found to be in good position. The atherectomy was carried out using a pathway device. It appeared to improve the most significant segment, it could not be advanced beyond distal mid portion of the anterior tibial. The rest was then ballooned with a sequence of balloons s and the final was at 2.5. OPERATION CARRIED OUT: Aortobifemoral angiogram vial left groin selective catheterization of right femoral artery, balloon angioplasty, and pathway atherectomy of the right anterior tibial artery. Isaiah Hook Jr., MD [facility]
== END 2018-07-30 17:30 ==
LOC: C.SPRAD 08:46
PROVIDERS: ATTEND Surgery Vascular Surgery
DX: E11.52 Type 2 diabetes mellitus with diabetic peripheral angiopathy with gangrene (principal); I70.261 Atherosclerosis of native arteries of extremities with gangrene, right leg; I10 Essential (primary) hypertension; J45.909 Unspecified asthma, uncomplicated; Z95.5 Presence of coronary angioplasty implant and graft; I25.10 Atherosclerotic heart disease of native coronary artery without angina pectoris
CPT/HCPCS: 37229; 82948; J1644; J2250; J2704; Q9966